=== PATIENT | male | born 1945 | race Caucasian/White ===

== ENCOUNTER 2023-07-06 19:45 | Inpatient (IN) | payer MEDICARE, OTHER ==
--- NOTE | 2023-07-06 20:03 | ED ---
Chest Pain HPI - General Source: patient, family Mode of arrival: ambulatory Limitations: no limitations <Cierra Hilario - Last Filed: 07/06/23 20:02> <Omaira Soriano - Last Filed: 07/14/23 06:43> - General Chief Complaint: Chest Pain Stated Complaint: chest pain Left arm pain jaw pain Time Seen by Provider: 07/06/23 20:10 - History of Present Illness Initial Comments: 77-year-old male presenting with chief complaint of chest pain. This is a centralized chest pain. He also admits to aches in his arms and jaw. Pain started today. (Cierra Hilario) 77-year-old male with past medical history of diabetes, hypertension, hyperlipidemia who presents emergency department who presents emergency department chest pain. States he went grocery shopping this afternoon and when he came home he started having pressure in his chest. He rates it as a 2 out of 10. Denies previous history of heart disease. He denies having any type of cardiac workup. No associated nausea, vomiting or shortness of breath. No fevers, chills or cough. Admits that the pain radiates to his arms and jaw. No other alleviating, precipitating or modifying factors (Omaira Soriano) - Related Data Home Medications Medication Instructions Recorded Confirmed Levothyroxine Sodium [Synthroid] 125 mcg PO DAILY 07/06/23 07/07/23 Empagliflozin [Jardiance] 25 mg PO DAILY@1200 07/07/23 07/07/23 glipiZIDE [Glucotrol] 10 mg PO BID 07/07/23 07/07/23 Previous Rx's Medication Instructions Recorded Aspirin 81 mg PO DAILY #90 tab 07/10/23 Atorvastatin [Lipitor] 80 mg PO HS #90 tab 07/10/23 Clopidogrel [Plavix] 75 mg PO DAILY #30 tablet 07/10/23 Metoprolol Tartrate [Lopressor] 25 mg PO BID #120 tab 07/10/23 Nitroglycerin Sl Tabs [Nitrostat] 0.4 mg SUBLINGUAL Q5M PRN #30 tab 07/10/23 Allergies Allergy/AdvReac Type Severity Reaction Status Date / Time No Known Allergies Allergy Verified 07/06/23 20:27 Review of Systems ROS Other: All systems not noted in ROS Statement are negative. <Cierra Hilario - Last Filed: 07/06/23 20:02> ROS Other: All systems not noted in ROS Statement are negative. <Omaira Soriano - Last Filed: 07/14/23 06:43> ROS Statement: Those systems with pertinent positive or pertinent negative responses have been documented in the HPI. Past Medical History Past Medical History: Diabetes Mellitus, Hyperlipidemia, Hypertension, Thyroid Disorder History of Any Multi-Drug Resistant Organisms: None Reported Past Surgical History: Cholecystectomy Past Psychological History: No Psychological Hx Reported Smoking Status: Former smoker Past Alcohol Use History: None Reported Past Drug Use History: None Reported <Cierra Hilario - Last Filed: 07/06/23 20:02> General Exam Limitations: no limitations <Cierra Hilario - Last Filed: 07/06/23 20:02> General appearance: alert, in no apparent distress Head exam: Present: atraumatic, normocephalic, normal inspection Eye exam: Present: normal appearance, PERRL, EOMI. Absent: scleral icterus, conjunctival injection, periorbital swelling ENT exam: Present: normal exam, mucous membranes moist Neck exam: Present: normal inspection. Absent: tenderness, meningismus, lymphadenopathy Respiratory exam: Present: normal lung sounds bilaterally. Absent: respiratory distress, wheezes, rales, rhonchi, stridor Cardiovascular Exam: Present: regular rate, normal rhythm, normal heart sounds. Absent: systolic murmur, diastolic murmur, rubs, gallop, clicks GI/Abdominal exam: Present: soft, normal bowel sounds. Absent: distended, tenderness, guarding, rebound, rigid Extremities exam: Present: normal inspection, full ROM, normal capillary refill. Absent: tenderness, pedal edema, joint swelling, calf tenderness Back exam: Present: normal inspection Neurological exam: Present: alert, oriented X3, CN II-XII intact Psychiatric exam: Present: normal affect, normal mood Skin exam: Present: warm, dry, intact, normal color. Absent: rash <Omaira Soriano - Last Filed: 07/14/23 06:43> - General Exam Comments Initial Comments: Visual Physical Exam Vital signs reviewed General: Well-appearing, nontoxic, no acute distress. Head: Normocephalic, atraumatic Eyes: PERRLA, EOMI ENT: Airway patent Chest: Nonlabored breathing Skin: No visual rash, normal skin tone Neuro: Alert and oriented 3 Musculoskeletal: No gross abnormalities (Cierra Hilario) Course Vital Signs 07/06/23 07/06/23 07/06/23 19:54 20:20 20:30 Temperature 97.4 F L Pulse Rate 74 82 83 Respiratory 18 18 18 Rate Blood Pressure 178/101 202/97 206/99 O2 Sat by Pulse 99 98 96 Oximetry Chest Pain MDM <Cierra Hilario - Last Filed: 07/06/23 20:02> <Omaira Soriano - Last Filed: 07/14/23 06:43> - MDM I performed the quick note portion of this visit, electronically signed Cierra Hilario PA-C (Cierra Hilario) Was pt. sent in by a medical professional or institution ([facility], [employer]YING [employer]ING SUPERVISOR, urgent care, hospital, or custodial...) When possible be specific @ -No Did you speak to anyone other than the patient for history (EMS, parent, family, police, friend...)? What history was obtained from this source @ -Spoke with the patient's daughter Did you review nursing and triage notes (agree or disagree)? Why? @ -I reviewed and agree with nursing and triage notes Were old charts reviewed (outside hosp., previous admission, EMS record, old EKG, old radiological studies, urgent care reports/EKG's, custodial records)? Report findings @ -No old charts were reviewed Differential Diagnosis (chest pain, altered mental status, abdominal pain women, abdominal pain men, vaginal bleeding, weakness, fever, dyspnea, syncope, headache, dizziness, GI bleed, back pain, seizure, CVA, palpatations, mental health, musculoskeletal)? @ -Differential Chest Pain: Stable Angina, Unstable Angina, STEMI, NSTEMI Aortic Dissection, Pneumothorax, Musculoskeletal, Esophageal Spasm GERD, Cholecystitis, Pancreatitis, Zoster, this is not meant to be an all-inclusive list. EKG interpreted by me (3pts min.). @ -Yes and demonstrates sinus rhythm with a rate of 75. LA interval 223. QRS 111. QTc of 373. ST segment elevation 2, 3, aVF with reciprocal changes in 1, aVL V2V3 X-rays interpreted by me (1pt min.). @ -None done CT interpreted by me (1pt min.). @ -None done U/S interpreted by me (1pt. min.). @ -None done What testing was considered but not performed or refused? (CT, X-rays, U/S, labs)? Why? @ -None What meds were considered but not given or refused? Why? @ -None Did you discuss the management of the patient with other professionals (professionals i.e. Dr., PA, DRYING AND WINDING SUPERVISOR, lab, RT, psych nurse, social service agency director, information systems analyst, teacher, employment officer, spring encaser)? Give summary @ -Spoke with dr. Castro who will take patient to rn labor delivery. Also spoke with dr hernandez for admission Was smoking cessation discussed for >3mins.? @ -No Was critical care preformed (if so, how long)? @ -yes, 35 minutes for stemi activation and management Were there social determinants of health that impacted care today? How? (Homelessness, low income, unemployed, alcoholism, drug addiction, transportation, low edu. Level, literacy, decrease access to med. care, nursing home, rehab)? @ -No Was there de-escalation of care discussed even if they declined (Discuss DNR or withdrawal of care, Hospice)? DNR status @ -No What co-morbidities impacted this encounter? (DM, HTN, Smoking, COPD, CAD, Cancer, CVA, ARF, Chemo, Hep., AIDS, mental health diagnosis, sleep apnea, morbid obesity)? @ -None Was patient admitted / discharged? Hospital course, mention meds given and route, prescriptions, significant lab abnormalities, going to OR and other pertinent info. @ -Upon arrival patient was seen and evaluated in room 3. Thorough history and physical exam was performed. Twelve-lead EKG was obtained which demonstrates ST segment elevation. Aviation Technical Systems Specialist was activated. Spoke with Dr. Castro who will take patient to [facility] Systems Specialist. He was given a beta-pasha, heparin, aspirin and statin. Dr. Castro does present to the ED and sees the patient. Patient will be admitted to Dr. Krause. He was taken to the floor in stable condition Undiagnosed new problem with uncertain prognosis? @ -Yes Drug Therapy requiring intensive monitoring for toxicity (Heparin, Nitro, Insulin, Cardizem)? @ -No Were any procedures done? @ -No Diagnosis/symptom? @ -Acute chest pain, acute STEMI Acute, or Chronic, or Acute on Chronic? @ -Acute Uncomplicated (without systemic symptoms) or Complicated (systemic symptoms)? @ -Complicated Side effects of treatment? @ -No Exacerbation, Progression, or Severe Exacerbation? @ -No Poses a threat to life or bodily function? How? (Chest pain, [place], [place], pneumonia, PE, COPD, DKA, ARF, appy, cholecystitis, CVA, Diverticulitis, Homicidal, Suicidal, threat to staff... and all critical care pts) @ -Yes, patient does present with chest pain and STEMI criteria (Omaira Soriano) Disposition <Cierra Hilario - Last Filed: 07/06/23 20:02> Is patient prescribed a controlled substance at d/c from ED?: No Time of Disposition: 20:22 Decision to Admit Reason: Admit from EC Decision Date: 07/06/23 Decision Time: 20:22 <Omaira Soriano - Last Filed: 07/14/23 06:43> Clinical Impression: Chest pain, ST elevation myocardial infarction (STEMI) Disposition: ADMITTED IP TO THIS HOSP Condition: Stable
[2023-07-06] MEDS ORDERED: NALOXONE 0.4 MG/ML 1 ML VIAL IV PRN (20:25)
[2023-07-06] MEDS: ASPIRIN 81 MG PO STA (20:27)
[2023-07-06] MEDS: METOPROLOL TARTRATE 25 MG TAB PO STA ×2 (20:27→20:42)
[2023-07-06] MEDS: ATORVASTATIN 80 MG TAB PO STA (20:27)
[2023-07-06] MEDS: HEPARIN SODIUM 1,000 UN/ML (10ML VL) IV ONE ×2 (20:28→21:01)
[2023-07-06] MEDS: SODIUM CHLORIDE 0.9% 1,000 ML IV STA (20:29)
[2023-07-06 20:35] LABS: Basophils % (A) 1 %; Eosinophils % (A) 1 %; HCT 52.1 % (39.0-53.0); HGB 16.7 gm/dL (13.0-17.5); Lymphocytes # (A) 1.2 k/uL (1.0-4.8); Lymphocytes % (A) 17 %; MCH 29.9 pg (25.0-35.0); MCHC 32.1 g/dL (31.0-37.0); Mean Platelet Volume 7.2; Monocytes # (A) 0.4 k/uL (0-1.0); Monocytes % (A) 5 %; Neutrophils # (A) 5.4 k/uL (1.3-7.7); Neutrophils % (A) 75 %; Platelet Count 244 k/uL (150-450); RDW 13.5 % (11.5-15.5); WBC 7.2 k/uL (3.8-10.6)
[2023-07-06] MEDS: NITROGLYCERIN OINT 1 INCH/GM PACKET TOPICAL STA (20:41)
[2023-07-06 20:47] LABS: Prothrombin Time 10.8 sec (10.0-12.5)
[2023-07-06 20:49] LABS: ALT 14 U/L (4-49); AST 24 U/L (17-59); African American GFR (CKD) >90 (>60 ml/min/1.73 sqM); Albumin 4.9 g/dL (3.5-5.0); Alkaline Phosphatase 112 U/L (38-126); Anion Gap 12 mmol/L; Blood Urea Nitrogen 16 mg/dL (9-20); Calcium 9.4 mg/dL (8.4-10.2); Carbon Dioxide 25 mmol/L (22-30); Chloride 100 mmol/L (98-107); Glucose 191 mg/dL (74-99); Magnesium 2.1 mg/dL (1.6-2.3); Non-African American GFR(CKD) 83 (>60 ml/min/1.73 sqM); Potassium 4.5 mmol/L (3.5-5.1); Sodium 137 mmol/L (137-145); Total Bilirubin 1.1 mg/dL (0.2-1.3); Total Protein 7.9 g/dL (6.3-8.2)
[2023-07-06] MEDS: IV FLUID CONTINUATION 1,000 ML IV ONE (20:50)
[2023-07-06] MEDS ORDERED: HEPARIN SODIUM 1,000 UN/ML (10ML VL) ONE (20:54)
[2023-07-06] MEDS ORDERED: LIDOCAINE 1% INJ 10MG/ML (20 ML MDV) ONE (20:54)
[2023-07-06] MEDS ORDERED: VERAPAMIL 2.5 MG/ML 2 ML AMP ONE (20:54)
[2023-07-06] MEDS ORDERED: fentaNYL (PF) 50 MCG/ML 2 ML AMP ONE (20:54)
[2023-07-06] MEDS: fentaNYL (PF) 50 MCG/ML 2 ML AMP IVP ONE (20:55)
[2023-07-06] MEDS: LIDOCAINE 1% INJ 10MG/ML (20 ML MDV) SQ ONE (20:56)
[2023-07-06] MEDS: VERAPAMIL SYRINGE (5 MG/10 ML) INTRAARTER ONE (20:57)
--- NOTE | 2023-07-06 20:58 | P.CRDCN ---
History of Present Illness History of present illness: This is Dr. Castro dictating a consult on this patient The patient was interviewed and examined IMPRESSION / ASSESSMENT: Acute inferior posterior [place] with lateral extension Pain started around tween 3 and 4 PM today at rest Hypertension, on losartan Type 2 diabetes on medications Dyslipidemia, on atorvastatin 40 mg p.o. daily at home PLAN: Heparin, atorvastatin, aspirin, metoprolol, Nitropaste The patient was pain-free before he entered the Material Processor Blood pressure still elevated although in the doctor's office his blood pressure was normal recently Proceed with coronary angiography Further management HPI About 3 PM this afternoon the patient started experiencing lower left-sided chest discomfort. He also had discomfort in his left arm and on the right side of the jaw The pain did not go away despite aspirins and he called his daughter who brought him to the hospital His first twelve-lead EKG in the hospital showed ST elevation in the inferior leads with ST depression in leads I and aVL and ST depression in V1 V2 consistent with a inferior posterior [place] His blood pressure was elevated. Initially was given metoprolol 25 mg and then I added a second dose of metoprolol as well as Nitropaste He also received atorvastatin 80 mg p.o. daily, he does take 40 mg p.o. daily on a regular basis He received aspirin and IV heparin bolus Past medical history of diabetes type 2, hypertension on losartan and dyslipidemia, on atorvastatin 40 mg p.o. daily ROS: No fever chills or rigors, no cough, phlegm or expectoration, no nausea, vomiting or diarrhea, no hematuria, dysuria, no musculoskeletal complaints, no strokes or seizures, no skin lesions. EXAMINATION: 178/101 mmHg pulse rate in 70s and 80s afebrile Breath sounds are clear no rhonchi no crackles Heart sounds S1-S2 normal no murmurs or gallop no rub Abdomen soft Extremities warm no edema REVIEW OF LABS, ECG & MEDICAL DATA White count normal hemoglobin 16 platelet count normal Normal electrolytes sodium 137 potassium 4.5 BUN 16 creatinine 0.9 both normal Magnesium normal 2.1 Past Medical History Past Medical History: Diabetes Mellitus, Hyperlipidemia, Hypertension, Thyroid Disorder History of Any Multi-Drug Resistant Organisms: None Reported Past Surgical History: Cholecystectomy Past Psychological History: No Psychological Hx Reported Smoking Status: Former smoker Past Alcohol Use History: None Reported Past Drug Use History: None Reported Medications and Allergies Home Medications Medication Instructions Recorded Confirmed Type Atorvastatin [Lipitor] 40 mg PO DIRECTED 07/06/23 07/06/23 History Levothyroxine Sodium [Synthroid] 125 mcg PO DIRECTED 07/06/23 07/06/23 History RX: Losartan Potassium 50 mg PO DIRECTED 07/06/23 07/06/23 History Unknown Diabetic Medication 1 dose PO DIRECTED 07/06/23 07/06/23 History Unknown Diabetic Medication 1 dose PO DIRECTED 07/06/23 07/06/23 History Allergies Allergy/AdvReac Type Severity Reaction Status Date / Time No Known Allergies Allergy Verified 07/06/23 20:27 Physical Exam Vitals: Vital Signs Temp Pulse Resp BP Pulse Ox 07/06/23 20:30 83 18 206/99 96 07/06/23 20:20 82 18 202/97 98 07/06/23 19:54 97.4 F L 74 18 178/101 99 Intake and Output 07/06/23 07/06/23 07/06/23 06:59 14:59 22:59 Other: Weight 70.307 kg Results 07/06/23 20:11 07/06/23 20:11 Cardiac Enzymes 07/06/23 Range/Units 20:11 AST 24 (17-59) U/L Coagulation 07/06/23 Range/Units 20:11 PT 10.8 (10.0-12.5) sec APTT 26.0 (22.0-30.0) sec CBC 07/06/23 Range/Units 20:11 WBC 7.2 (3.8-10.6) k/uL RBC 5.60 (4.30-5.90) m/uL Hgb 16.7 (13.0-17.5) gm/dL Hct 52.1 (39.0-53.0) % Plt Count 244 (150-450) k/uL Comprehensive Metabolic Panel 07/06/23 Range/Units 20:11 Sodium 137 (137-145) mmol/L Potassium 4.5 (3.5-5.1) mmol/L Chloride 100 (98-107) mmol/L Carbon Dioxide 25 (22-30) mmol/L BUN 16 (9-20) mg/dL Creatinine 0.88 (0.66-1.25) mg/dL Glucose 191 H (74-99) mg/dL Calcium 9.4 (8.4-10.2) mg/dL AST 24 (17-59) U/L ALT 14 (4-49) U/L Alkaline Phosphatase 112 (38-126) U/L Total Protein 7.9 (6.3-8.2) g/dL Albumin 4.9 (3.5-5.0) g/dL Current Medications Generic Name Dose Route Start Last Admin Trade Name Freq PRN Reason Stop Dose Admin Sodium Chloride 1,000 mls @ 999 mls/hr 07/06/23 20:21 07/06/23 20:29 Saline 0.9% IV 07/06/23 21:21 999 mls/hr .Q1H1M STA Administration Naloxone HCl 0.2 mg 07/06/23 20:25 Naloxone 0.4 Mg/Ml 1 Ml Vial IV Q2M PRN Opioid Reversal Intake and Output 07/06/23 07/06/23 07/06/23 06:59 14:59 22:59 Other: Weight 70.307 kg Patient Weight 07/07/23 06:59 Weight 70.307 kg 07/06/23 20:11 07/06/23 20:11
[2023-07-06] MEDS ORDERED: TICAGRELOR 90 MG TAB ONE (21:07)
[2023-07-06] MEDS: TICAGRELOR 90 MG TAB PO ONE (21:08)
[2023-07-06] MEDS: IOPAMIDOL-370 100ML BTL INJ ONE ×2 (21:14→22:00)
--- NOTE | 2023-07-06 21:47 | XR ---
EXAMINATION TYPE: XR chest 1V portable DATE OF EXAM: 07/06/2023 8:33 PM CLINICAL INDICATION:Male, 77 years old with history of Chest Pain; [facility] COMPARISON: Chest radiographs from 01/12/2013 TECHNIQUE: XR chest 1V portable Frontal view of the chest. FINDINGS: Lungs/Pleura: There is no evidence of pleural effusion, focal consolidation, or pneumothorax. Pulmonary vascularity: Unremarkable. Heart/mediastinum: Cardiomediastinal silhouette is prominent in size. Musculoskeletal: Degenerative changes of the shoulder joints. IMPRESSION: No acute cardiopulmonary disease/process.
[2023-07-06] MEDS ORDERED: RX INFO: IV CONTRAST WAS GIVEN 1 EACH MISC MISCELLANE PRN (22:15)
[2023-07-06] MEDS ORDERED: ZOLPIDEM 5 MG TAB PO PRN (22:15)
[2023-07-06] MEDS ORDERED: NITROGLYCERIN SL TABS 0.4 MG TAB SUBLINGUAL PRN (22:15)
[2023-07-06] MEDS ORDERED: MAG HYDROX/AL HYDROX/SIMETH 30 ML CUP PO PRN (22:15)
[2023-07-06] MEDS ORDERED: ATROPINE SULFATE 0.1 MG/ML 10ML SYRINGE IV PRN (22:15)
[2023-07-06] MEDS ORDERED: HEPARIN SODIUM 1,000 UN/ML (10ML VL) IV PRN (22:18)
[2023-07-06 22:22] LABS: Glucose,Whole Blood 185 mg/dL (70-110)
--- NOTE | 2023-07-06 22:29 | P.CARDCATH ---
Date of Procedure: 07/06/23 Description of Procedure: Cardiac Catheterization: The patient is a 77-year-old male with longstanding history of diabetes, hypertension and hyperlipidemia followed at the [facility] who presented with symptoms of chest discomfort and evidence of inferoposterior myocardial infarction. He was evaluated by Dr. Castro. Recommendations were made regarding cardiac catheterization, the risks and the complications were discussed with the patient who is in full understanding and agreement. Procedure Description: Patient was brought to laborer pullet farm in fasting semi-sedated state after receiving Fentanyl and Benadryl achieiving moderate conscious sedated state. Using Xylocaine Anesthesia and modified Seldinger technique, a 6-Cymraes sheath was introduced in the right radial artery . Subsequently, selective coronary angiography was performed using a 5-Cymraes 3.5 bend left Nohemi catheter and 6 Cymraes FR 4 guiding catheter. Multiple views of the coronary artery including hemiaxial views were obtained. The 5 Cymraes pigtail catheter was used to cross the aortic valve and LVEDP was calculated. PCI: Using the FR 4 guiding catheter a 0.014 BMW J-wire with a microcatheter super cross were used to cross the total occlusion of the right PDA. Subsequently a 2.5 x 12 mm trek balloon was advanced and multiple inflations were performed at a maximum of 10 connor. After removing the balloon a 2.25 x 12 mm NC trek balloon was advanced and multiple inflation at a maximum of 14 connor were done in the PDA and distal RCA with persistent significant stenosis. There was inability to use IVUS because of technical problem with the machine. At that time a 2.5 x 12 mm NC trek balloon was advanced and multiple inflations at a maximum of 14 connor were done. Because of the severe calcification attempt to advance shockwave lithotripsy 2.5 x 12 mm balloon were unsuccessful. At that point repeat inflation with a 2.5 x 12 mm trek balloon were done with significant improvement in the lesion. Afterward the wire was removed images were obtained and revealed FREIDA-3 flow with significant improvement in the lesions. Following that, catheter and sheath were removed. Hemostasis was obtained with deployment of vascular band . There was no immediate complication. Patient was returned to room in stable condition. Of note, the patient received a total of 3000 units of intravenous heparin as well as intra-arterial verapamil. He received an oral loading dose of Brilinta, his ACT was followed. He was pain-free and there was significant improvement in his EKG changes. Findings: Fluoroscopy: Severe calcifications of all the coronary arteries was noted. Left main: This is a large size vessel, bifurcating into LAD and left circumflex, the distal left main has 20 to 30% plaque. LAD: This is a large size vessel, reaching to the apex, giving rise to a small diagonal branch. The proximal LAD has severe area of stenosis and a long segment up to 90%. The apical segment is small in caliber and has diffuse intimal disease with a area of stenosis up to 90% Left circumflex: This is a nondominant large size vessel giving rise to 2 obtuse marginal branch. The first 1 has a tubular normal lesion with stenosis up to 90% the distal vessel has no high-grade stenosis the second obtuse marginal branch has no high-grade stenosis but there is an 85% stenosis in the proximal left circumflex. RCA: This is a dominant vessel heavily calcified bifurcating distally to PDA and PLV. The PDA is totally occluded at the ostium. The mid right coronary artery has an area of stenosis of 50% and distally 95%. Left Ventriculogram: Not performed Hemodynamics: There was no gradient across the aortic valve, LVEDP was 16-18 mmHg Conclusion: 1. Severely calcified coronary arteries 2. 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 Successful angioplasty of the right PDA with reduction stenosis, 100% to about 40% with severely calcified vessel and inability to open up the lesion completely with FREIDA-3 flow. Recommendations: I have recommended to obtain a surgical consultation in view of the triple- vessel disease with a heavily calcification in the diabetes. The patient will be started on heparin. He has a FREIDA-3 flow at this point and his pain-free with resolution of his ST segment elevation. An echocardiogram with Doppler will be obtained and depending on his progress further recommendations will be made. The findings and the recommendations were discussed with the patient and the family and they were in full understanding and agreement. Duration of sedation is 60 minutes.
[2023-07-06] MEDS: SODIUM CHLORIDE 0.9% 1,000 ML in EMPTY BAG 1 BAG IV SCH (22:45)
[2023-07-06] MEDS ORDERED: DEXTROSE 50% SYRINGE 50 ML IVP PRN ×2 (23:14)
[2023-07-06 23:49] LABS: Glucose,Whole Blood 206 mg/dL (70-110)
[2023-07-06] MEDS: INSULIN ASPART (NovoLOG) 100 UNIT/ML VIAL SQ SCH (23:52)
[2023-07-06] MEDS: NITROGLYCERIN OINT 1 INCH/GM PACKET TOPICAL SCH (23:54)
[2023-07-07] MEDS: HEPARIN SOD,PORK IN 0.45% NACL 25,000 UNIT in 0.45% NACL 1 250ML.BAG IV SCH (00:14)
[2023-07-07 00:41] LABS: Basophils % (A) 0 %; Eosinophils % (A) 0 %; HGB 14.5 gm/dL (13.0-17.5); Lymphocytes # (A) 1.2 k/uL (1.0-4.8); Lymphocytes % (A) 12 %; MCH 30.1 pg (25.0-35.0); MCV 91.4 fL (80.0-100.0); Mean Platelet Volume 7.9; Monocytes # (A) 0.8 k/uL (0-1.0); Monocytes % (A) 7 %; Neutrophils # (A) 8.2 k/uL (1.3-7.7); Neutrophils % (A) 79 %; Platelet Count 211 k/uL (150-450); RBC 4.81 m/uL (4.30-5.90); RDW 13.6 % (11.5-15.5); WBC 10.3 k/uL (3.8-10.6)
[2023-07-07 00:58] LABS: Prothrombin Time 11.2 sec (10.0-12.5)
--- NOTE | 2023-07-07 04:32 | P.HPIM ---
History of Present Illness H&P Date: 07/06/23 Chief Complaint: Chest pain 77-year-old male with hypertension diabetes mellitus Patient coming in for evaluation of feeling very tired and weak all day he was not feeling well, he ran couple errands and chores during the daytime but then later while resting at home he experienced sudden onset epigastric burning and chest discomfort going up all the way to his neck he called his daughter and she brought him to the hospital he denies any associated dizziness lightheadedness profuse sweating or shortness of breath he denies any cardiac history. Patient denies any tobacco smoking illicit drugs or heavy alcohol he quit smoking over 13 years ago EKG in the ED was suggestive of inferior STEMI for which Video Effects Editor was activated. Patient was found to have severe triple-vessel disease and with background of diabetes cardiology suggested surgical evaluation for bypass surgery patient also had successful PCI of his right PDA review of systems Pertinent positives as noted in HPI. All other systems were reviewed and are negative on exam Constitutional: No acute distress, conversant, pleasant Eyes: Anicteric sclerae, moist conjunctiva, Pupils equal round reactive to light ENMT: NC/AT Oropharynx clear, no erythema, or exudates Neck: Supple, no masses, or JVD No carotid bruits No thyromegaly Lungs: Clear to auscultation Clear to percussion Normal respiratory effort, no accessory muscle use Cardiovascular: Heart regular in rate and rhythm, No murmurs, gallops, or rubs No peripheral edema Abdominal: Soft Nontender, no guarding, rebound or rigidity Abdomen moving with respiration Normoactive bowel sounds Extremities: No digital cyanosis No clubbing Pedal pulses intact and symmetrical Radial pulses intact and symmetrical No calf tenderness Psychiatric: Alert and oriented to person, place and time Appropriate affect fair judgement Neuro Muscles Strength 5/5 in all 4 extremities Sensation to light touch grossly present throughout Cranial nerves II-XII grossly intact Past Medical History Past Medical History: Diabetes Mellitus, Hyperlipidemia, Hypertension, Thyroid Disorder History of Any Multi-Drug Resistant Organisms: None Reported Past Surgical History: Cholecystectomy Past Psychological History: No Psychological Hx Reported Smoking Status: Former smoker Past Alcohol Use History: None Reported Past Drug Use History: None Reported Medications and Allergies Home Medications Medication Instructions Recorded Confirmed Type Atorvastatin [Lipitor] 40 mg PO DIRECTED 07/06/23 07/06/23 History Levothyroxine Sodium [Synthroid] 125 mcg PO DIRECTED 07/06/23 07/06/23 History Losartan Potassium 50 mg PO DIRECTED 07/06/23 07/06/23 History Unknown Diabetic Medication 1 dose PO DIRECTED 07/06/23 07/06/23 History Unknown Diabetic Medication 1 dose PO DIRECTED 07/06/23 07/06/23 History Allergies Allergy/AdvReac Type Severity Reaction Status Date / Time No Known Allergies Allergy Verified 07/06/23 20:27 Physical Exam Vitals: Vital Signs Temp Pulse Resp BP Pulse Ox 07/07/23 04:00 97.9 F 64 13 98/61 95 07/07/23 03:00 56 L 12 86/61 95 07/07/23 02:00 61 20 95/63 97 07/07/23 01:00 61 0 L 122/85 98 07/07/23 00:00 97.9 F 65 12 112/76 97 07/06/23 23:00 85 21 124/77 98 07/06/23 22:29 81 14 124/77 96 07/06/23 22:23 20 07/06/23 20:30 83 18 206/99 96 07/06/23 20:20 82 18 202/97 98 07/06/23 19:54 97.4 F L 74 18 178/101 99 Intake and Output 07/06/23 07/06/23 07/07/23 14:59 22:59 06:59 Intake Total 300 420 Output Total 350 Balance 300 70 Intake: IV 300 420 Sodium Chloride 0.9% 1, 420 000 ml In Empty Bag 1 bag @ 1 ML/KG/HR 70.307 mls/ hr IV .[id number] [facility] Rx#: [id number] Output: Urine 350 Other: Voiding Method Urinal # Voids 1 Weight 70.307 kg Results CBC & Chem 7: 07/07/23 00:24 07/06/23 20:11 Labs: Abnormal Lab Results - Last 24 Hours (Table) 07/06/23 07/06/23 07/06/23 Range/Units 20:11 20:11 22:21 Neutrophils # (1.3-7.7) k/uL APTT (22.0-30.0) sec Glucose 191 H (74-99) mg/dL POC Glucose (mg/dL) 185 H (70-110) mg/dL Troponin I 0.221 H* (0.000-0.034) ng/mL 07/06/23 07/07/23 07/07/23 Range/Units 23:48 00:24 00:24 Neutrophils # 8.2 H (1.3-7.7) k/uL APTT 62.0 H (22.0-30.0) sec Glucose (74-99) mg/dL POC Glucose (mg/dL) 206 H (70-110) mg/dL Troponin I (0.000-0.034) ng/mL Assessment and Plan Assessment: 77-year-old male diabetes mellitus hypertension coming in for evaluation of epigastric burning and discomfort was found to have inferior STEMI I discussed case with ED doctor and accepted the admission for STEMI with anticipated length of stay more than 2 midnights Severe triple-vessel disease STEMI EKG showed inferior ST elevation NC Status post left heart cath and successful PCI of right PDA however due to severe triple-vessel disease cardiology recommending surgical evaluation Continue with heparin drip Continue with aspirin Continue with metoprolol Continue with atorvastatin 80 mg p.o. nightly Nitro Nitropaste as needed for pain Cardiac monitoring ICU admission Tropes were elevated 0.2 Hypertension, elevated uncontrolled Continue with metoprolol 25 mg p.o. twice daily Continue lisinopril 5 mg p.o. twice daily Diabetes mellitus Insulin sliding scale Hypothyroid Continue with levothyroxine Blood work showing white count 7.2 hemoglobin 16.7 unremarkable Sodium 137 potassium 4.5 BUN 16 creatinine 0.88 Full code DVT prophylaxis on heparin drip per [facility] protocol
[2023-07-07 06:21] LABS: Basophils % (A) 0 %; Eosinophils % (A) 0 %; HCT 42.1 % (39.0-53.0); HGB 13.7 gm/dL (13.0-17.5); Lymphocytes # (A) 0.9 k/uL (1.0-4.8); Lymphocytes % (A) 11 %; MCHC 32.5 g/dL (31.0-37.0); MCV 92.4 fL (80.0-100.0); Mean Platelet Volume 7.5; Monocytes # (A) 0.4 k/uL (0-1.0); Monocytes % (A) 5 %; Neutrophils # (A) 6.5 k/uL (1.3-7.7); Neutrophils % (A) 81 %; Platelet Count 201 k/uL (150-450); RBC 4.56 m/uL (4.30-5.90); RDW 13.5 % (11.5-15.5)
[2023-07-07 06:33] LABS: Partial Thromboplastin Time 56.2 sec (22.0-30.0); Prothrombin Time 11.1 sec (10.0-12.5)
[2023-07-07 06:33] LABS: Glucose,Whole Blood 108 mg/dL (70-110)
[2023-07-07 07:06] LABS: ALT 14 U/L (4-49); AST 62 U/L (17-59); African American GFR (CKD) >90 (>60 ml/min/1.73 sqM); Albumin 3.4 g/dL (3.5-5.0); Alkaline Phosphatase 86 U/L (38-126); Anion Gap 7 mmol/L; Blood Urea Nitrogen 16 mg/dL (9-20); Calcium 8.5 mg/dL (8.4-10.2); Carbon Dioxide 20 mmol/L (22-30); Chloride 107 mmol/L (98-107); Glucose 123 mg/dL (74-99); Non-African American GFR(CKD) 88 (>60 ml/min/1.73 sqM); Potassium 3.9 mmol/L (3.5-5.1); Sodium 134 mmol/L (137-145); Total Protein 5.8 g/dL (6.3-8.2)
[2023-07-07] MEDS: LEVOTHYROXINE 125 MCG TAB PO SCH (08:06)
[2023-07-07] MEDS: ASPIRIN 81 MG PO SCH (08:06)
[2023-07-07] MEDS: lisinopriL 5 MG TAB PO SCH (08:07)
[2023-07-07] MEDS: POTASSIUM CHLORIDE ER 20 MEQ TAB.ER PO SCH (08:08)
[2023-07-07] MEDS: METOPROLOL TARTRATE 25 MG TAB PO SCH (09:04)
--- NOTE | 2023-07-07 10:29 | US ---
EXAMINATION TYPE: US carotid duplex BILAT DATE OF EXAM: 07/07/2023 COMPARISON: NONE CLINICAL INDICATION: Male, 77 years old with history of Pre-Op Cardiac Surgery; open heart TECHNIQUE: Carotid duplex ultrasound examination. Indirect Doppler criteria was utilized. FINDINGS: EXAM MEASUREMENTS: RIGHT: Peak Systolic Velocity (PSV) cm/sec ----- Right CCA: 48.1 ----- Right ICA: 50.7 ----- Right ECA: 93.5 ICA/CCA ratio: 1.1 RIGHT: End Diastole cm/sec ----- Right CCA: 0.0 ----- Right ICA: 5.1 ----- Right ECA: 0.0 LEFT: Peak Systolic Velocity (PSV) cm/sec ----- Left CCA: 54.8 ----- Left ICA: 90.5 ----- Left ECA: 119.4 ICA/CCA ratio: 1.6 LEFT: End Diastole cm/sec ----- Left CCA: 0.0 ----- Left ICA: 0.0 ----- Left ECA: 0.0 VERTEBRALS (direction of flow): Right Vertebral: Antegrade Left Vertebral: Antegrade Rhythm: Normal FIRST GRADE TEACHER NOTES: Mild atherosclerotic, no significant stenosis, velocity elevations, or elevated r atios IMPRESSION: 1. Moderate calcified plaque in the carotid bifurcations bilaterally, left greater than right. 2. Based on peak systolic velocities and ratios, no hemodynamically significant stenosis. Criteria for Assigning % of Stenosis / Diameter reduction (Estimation based on the indirect measurements of the internal carotid artery velocities (ICA PSV). 1. Normal (no stenosis)=ICA PSV < 125 cm/s: ratio < 2.0: ICA EDV<40 cm/s. 2. Less than 50% stenosis=ICA PSV < 125 cm/s: ratio < 2.0: ICA EDV<40 cm/s. 3. 50 to 69% stenosis=ICA PSV of 125 to 230 cm/s: ration 2.0 ? 4.0: ICA EDV 40-100 cm/s. 4. Greater than 70% stenosis to near occlusion= ICA PSV > 230 cm/s: ratio > 4.0: ICA EDV > 100 cm/s. 5. Near occlusion= ICA PSV velocities may be low or undetectable: variable ratio and ICA EDV. 6. Total occlusion=unable to detect flow.
--- NOTE | 2023-07-07 10:30 | US ---
EXAMINATION TYPE: Pre-Operative Non-Invasive Evaluation of the hand for Potential Radial Artery Maribell clements, Measurements only DATE OF EXAM: 07/07/2023 10:10 AM CLINICAL INDICATION: Male, 77 years old with history of Pre-Op Cardiac Surgery; left arm measurements only per order SIDE PERFORMED: Left TECHNIQUE: Radial artery is measured utilizing real time linear array sonography. Dominant hand: Right Duplex Findings: Radial Artery: Color flow seen Measurements in mm, transverse view: Left Radial: Proximal: 2x3 mm Mid: 2x2 mm Distal: 2x3 mm IMPRESSION: 1. Left Radial artery measurements listed above. 2. Performing surgeon to determine viability as conduit.
--- NOTE | 2023-07-07 10:31 | US ---
EXAMINATION TYPE: US vein mapping BILAT DATE OF EXAM: 07/07/2023 10:07 AM COMPARISON: NONE CLINICAL INDICATION: Male, 77 years old with history of PreOp Cardiac Surgery; SIDE PERFORMED: Bilateral TECHNIQUE: Lower extremity saphenous vein is examined and measured utilizing real time linear array sonography. Patient History: Smoker: stopped 2012 Heart Disease: blockages on heart cath Previous DVT: n Vascular Surgery: n Discoloration: n Hypertension: y Diabetes: type 2 Paralysis: n Varicosities: y Edema: n DUPLEX FINDINGS: Greater Saphenous: Color flow seen Measurements in mm: Right Greater Saphenous: Groin: 6x6 mm High Thigh: 4x4 mm Mid Thigh: 2x3 mm Above Knee: 1x2 mm Knee: 1x2 mm Below Knee: 2x2 mm Mid Calf: 1x1 mm At Ankle: 1x1 mm Left Greater Saphenous: Groin: 4x5 mm High Thigh: 4x5 mm Mid Thigh: 2x3 mm Above Knee: 3x3 mm Knee: 2x2 mm Below Knee: 2x3 mm Mid Calf: 2x3 mm At Ankle: 2x3 mm GSV exited the fascia and branched frequently bilaterally IMPRESSION: 1. Bilateral GSV measurements listed above. 2. Performing surgeon to determine viability as conduit.
[2023-07-07 11:05] LABS: Chol/HDL Ratio 3.39 Ratio; LDL Cholesterol,Calculated 56.5 mg/dL (0.0-131.0)
[2023-07-07 11:37] LABS: Glucose,Whole Blood 93 mg/dL (70-110)
--- NOTE | 2023-07-07 11:40 | P.PN ---
Subjective Progress Note Date: 07/07/23 The patient is a 77-year-old male who was admitted to the hospital with non-ST elevated myocardial infarction. He underwent coronary angiogram which revealed severe triple-vessel disease. Attempted balloon angioplasty of the PDA branch by Dr. Grissom, which was very difficult and resulted in 40% stenosis. CV surgery has been consulted for multivessel bypass. Patient was interviewed and examined resting comfortably in bed. The patient denies any chest pain or difficulty breathing overnight. He has yet to get up and ambulate and therefore denies any dizziness or lightheadedness. GENERAL: Well-appearing, well-nourished and in no acute distress. NECK: Supple without JVD or thyromegaly. LUNGS: Breath sounds diminished to auscultation bilaterally. Respiration equal and unlabored. No wheezes, rales or rhonchi. HEART: Regular rate and rhythm without murmurs, rubs or gallops. S1 and S2 heard. EXTREMITIES: Normal range of motion, no edema. No clubbing or cyanosis. Peripheral pulses intact and strong. +2 right radial pulse. Mild bruising. No hematoma. TELEMETRY: Sinus bradycardia overnight IMPRESSION: ST elevated myocardial infarction Severe triple-vessel disease Status post balloon angioplasty of the PDA branch History of diabetes History of dyslipidemia History of hypertension PLAN: Switch to carvedilol 1.56 twice daily Continue lisinopril 5 mg daily Continue heparin drip while patient completes CV surgery evaluation Awaiting echocardiogram results Further recommendations based upon clinical course I am dictating on behalf of Dr Jeffry Castro's history/physical and assessme nt/plan. Objective - Vital Signs Vital signs: Vital Signs Temp 97.9 F 07/07/23 04:00 Pulse 56 L 07/07/23 07:00 Resp 24 07/07/23 07:00 BP 126/66 07/07/23 07:00 Pulse Ox 98 07/07/23 07:00 FiO2 Intake & Output 07/06/23 07/07/23 07/07/23 18:59 06:59 18:59 Intake Total 930 Output Total 575 Balance 355 Weight 78.1 kg Intake: IV 930 Sodium Chloride 0.9% 1, 630 000 ml In Empty Bag 1 bag @ 1 ML/KG/HR 70.307 mls/ hr IV .[id number] [facility] Rx#: [id number] Output: Urine 575 Other: Voiding Method Urinal # Voids 1 - Labs CBC & Chem 7: 07/07/23 05:31 07/07/23 05:31 Labs: Abnormal Lab Results - Last 24 Hours (Table) 07/06/23 07/06/23 07/06/23 Range/Units 20:11 20:11 22:21 Neutrophils # (1.3-7.7) k/uL Lymphocytes # (1.0-4.8) k/uL APTT (22.0-30.0) sec Sodium (137-145) mmol/L Carbon Dioxide (22-30) mmol/L Glucose 191 H (74-99) mg/dL POC Glucose (mg/dL) 185 H (70-110) mg/dL AST (17-59) U/L Troponin I 0.221 H* (0.000-0.034) ng/mL Total Protein (6.3-8.2) g/dL Albumin (3.5-5.0) g/dL 07/06/23 07/07/23 07/07/23 Range/Units 23:48 00:24 00:24 Neutrophils # 8.2 H (1.3-7.7) k/uL Lymphocytes # (1.0-4.8) k/uL APTT 62.0 H (22.0-30.0) sec Sodium (137-145) mmol/L Carbon Dioxide (22-30) mmol/L Glucose (74-99) mg/dL POC Glucose (mg/dL) 206 H (70-110) mg/dL AST (17-59) U/L Troponin I (0.000-0.034) ng/mL Total Protein (6.3-8.2) g/dL Albumin (3.5-5.0) g/dL 07/07/23 07/07/23 07/07/23 Range/Units 05:31 05:31 05:31 Neutrophils # (1.3-7.7) k/uL Lymphocytes # 0.9 L (1.0-4.8) k/uL APTT 56.2 H (22.0-30.0) sec Sodium 134 L (137-145) mmol/L Carbon Dioxide 20 L (22-30) mmol/L Glucose 123 H (74-99) mg/dL POC Glucose (mg/dL) (70-110) mg/dL AST 62 H (17-59) U/L Troponin I (0.000-0.034) ng/mL Total Protein 5.8 L (6.3-8.2) g/dL Albumin 3.4 L (3.5-5.0) g/dL
--- NOTE | 2023-07-07 12:27 | P.GSCN ---
History of Present Illness Consult date: 07/07/23 Reason for Consult: Acute inferior posterior myocardial infarction this admission, multivessel coronary artery disease Requesting physician: Lynne Grissom History of present illness: This is a 77-year-old gentleman who follows on an outpatient basis with the [facility] in [place] for his primary care. He has a past medical history significant for hypertension, hyperlipidemia, diabetes mellitus type 2, hypothyroid on S ynthroid as an outpatient, remote history of nicotine dependence quit smoking 13 years ago and osteoarthritis. Yesterday July 06, 2023 around 3 PM the patient reports he was getting some groceries and developed some substernal chest pain which radiated down both of his arms and to his jaw. He also reports he felt like he had no stamina with the chest pain. He denies any recent fever, chills, nausea, vomiting, diarrhea, constipation, hemoptysis, hematemesis, headache, visual disturbances, shortness of breath, lightheadedness, presyncope or syncope. The patient reports that there were no alleviating factors and that he took aspirin at home without relief. Subsequently due to his complaints of chest pain without relief the patient called his daughter who subsequently brought him to the emergency department here at [facility]. Initial laboratory results showed a WBC count of 7.2, hemoglobin 16.7, hematocrit 52.1, platelets 244, PT 10.8, INR 1.0, PTT 26.0, sodium 137, potassium 4.5, chloride 100, BUN 16, creatinine 0.88, glucose 191, calcium 9.4, magnesium 2.1, and an elevated troponin of 0.211. A twelve-lead EKG was completed which showed ST elevation in the inferior leads with ST depression in leads I, aVL, V1 and V2. A chest x-ray was also completed which showed no acute cardiopulmonary disease/process. A consult was placed to Dr. Balderas from cardiology and the patient was recommended to undergo a cardiac catheterization which was performed last evening July 06, [address] Grissom. The cardiac catheterization revealed severe triple-vessel disease with acutely occluded right PDA, severe disease in the LAD and left circumflex, he also underwent successfu angioplasty of the right PDA with reduction stenosis, 100% to about 40% with severely calcified vessel and inability to open the lesion completely with FREIDA-3 flow. Due to the patient's presenting symptoms and findings on the cardiac catheterization a consult was placed to Dr. Augusto Vences from cardiothoracic surgery for further evaluation and treatment recommendations including myocardial vascularization surgery. Review of Systems A review of systems was completed and was negative except as mentioned in the HPI. Past Medical History Past Medical History: Diabetes Mellitus, Hyperlipidemia, Hypertension, Osteoarthritis (OA), Thyroid Disorder History of Any Multi-Drug Resistant Organisms: None Reported Past Surgical History: Cholecystectomy Additional Past Surgical History / Comment(s): Cataract surgery to both eyes. Past Anesthesia/Blood Transfusion Reactions: No Reported Reaction Past Psychological History: No Psychological Hx Reported Smoking Status: Former smoker (Quit smoking 13 years ago) Past Alcohol Use History: None Reported Past Drug Use History: None Reported - Past Family History Mother Family Medical History: Diabetes Mellitus Additional Family Medical History / Comment(s): at age 82 from complications of diabetes Father Additional Family Medical History / Comment(s): History of bleeding ulcers, at age 101 Medications and Allergies Home Medications Medication Instructions Recorded Confirmed Type Atorvastatin [Lipitor] 40 mg PO DAILY 07/06/23 07/07/23 History Levothyroxine Sodium [Synthroid] 125 mcg PO DAILY 07/06/23 07/07/23 History Losartan Potassium 50 mg PO DAILY 07/06/23 07/07/23 History Empagliflozin [Jardiance] 25 mg PO DAILY@1200 07/07/23 07/07/23 History glipiZIDE [Glucotrol] 10 mg PO BID 07/07/23 07/07/23 History Allergies Allergy/AdvReac Type Severity Reaction Status Date / Time No Known Allergies Allergy Verified 07/06/23 20:27 Surgical - Exam Vital Signs Temp Pulse Resp BP Pulse Ox 97.4 F L 74 18 178/101 99 07/06/23 19:54 07/06/23 19:54 07/06/23 19:54 07/06/23 19:54 07/06/23 19:54 - General well developed, well nourished, no distress, no pain - Eyes PERRL, normal ocular movement, no pale, no icteric - ENT normal pinna, normal nares, normal mucosa, no hearing loss, no congestion, poor jail - Neck Neck is supple, no lymphadenopathy. no masses, no bruits, trachea midline, no venous distension - Respiratory Lungs essentially clear throughout. No wheezes, rhonchi or crackles. Respirations are symmetrical and nonlabored. Oxygen saturations 98% on room air. - Cardiovascular Regular rhythm and rate. S1 and S2 present, negative for S3, gallop or murmur. No peripheral edema. - Abdomen Abdomen is soft, nontender nondistended. Active bowel sounds present all 4 abdominal quadrants. No guarding or rigidity. No organomegaly appreciated. - Genitourinary Deferred - Rectum Deferred - Integumentary Skin is warm and dry. No clubbing or cyanosis is present. no rash, no growths, no abnormal pigmentation - Neurologic No focal deficits. normal coordination, normal sensation - Musculoskeletal Moves all 4 extremities with equal strength bilateral. normal gait - Psychiatric oriented to time, oriented to person, oriented to place, speech is normal, memory intact Results - Labs 07/07/23 05:07/07/23 05:31 Abnormal Lab Results - Last 24 Hours (Table) 07/06/23 07/06/23 07/06/23 Range/Units 20:11 20:11 22:21 Neutrophils # (1.3-7.7) k/uL Lymphocytes # (1.0-4.8) k/uL APTT (22.0-30.0) sec Sodium (137-145) mmol/L Carbon Dioxide (22-30) mmol/L Glucose 191 H (74-99) mg/dL POC Glucose (mg/dL) 185 H (70-110) mg/dL AST (17-59) U/L Troponin I 0.221 H* (0.000-0.034) ng/mL Total Protein (6.3-8.2) g/dL Albumin (3.5-5.0) g/dL 07/06/23 07/07/23 07/07/23 Range/Units 23:48 00:24 00:24 Neutrophils # 8.2 H (1.3-7.7) k/uL Lymphocytes # (1.0-4.8) k/uL APTT 62.0 H (22.0-30.0) sec Sodium (137-145) mmol/L Carbon Dioxide (22-30) mmol/L Glucose (74-99) mg/dL POC Glucose (mg/dL) 206 H (70-110) mg/dL AST (17-59) U/L Troponin I (0.000-0.034) ng/mL Total Protein (6.3-8.2) g/dL Albumin (3.5-5.0) g/dL 07/07/23 07/07/23 07/07/23 Range/Units 05:31 05:31 05:31 Neutrophils # (1.3-7.7) k/uL Lymphocytes # 0.9 L (1.0-4.8) k/uL APTT 56.2 H (22.0-30.0) sec Sodium 134 L (137-145) mmol/L Carbon Dioxide 20 L (22-30) mmol/L Glucose 123 H (74-99) mg/dL POC Glucose (mg/dL) (70-110) mg/dL AST 62 H (17-59) U/L Troponin I (0.000-0.034) ng/mL Total Protein 5.8 L (6.3-8.2) g/dL Albumin 3.4 L (3.5-5.0) g/dL Diabetes panel 07/06/23 07/07/23 Range/Units 20:11 05:31 Sodium 137 134 L (137-145) mmol/L Potassium 4.5 3.9 (3.5-5.1) mmol/L Chloride 100 107 (98-107) mmol/L Carbon Dioxide 25 20 L (22-30) mmol/L BUN 16 16 (9-20) mg/dL Creatinine 0.88 0.75 (0.66-1.25) mg/dL Glucose 191 H 123 H (74-99) mg/dL Calcium 9.4 8.5 (8.4-10.2) mg/dL AST 24 62 H (17-59) U/L ALT 14 14 (4-49) U/L Alkaline Phosphatase 112 86 (38-126) U/L Total Protein 7.9 5.8 L (6.3-8.2) g/dL Albumin 4.9 3.4 L (3.5-5.0) g/dL Calcium panel 07/06/23 07/07/23 Range/Units 20:11 05:31 Calcium 9.4 8.5 (8.4-10.2) mg/dL Albumin 4.9 3.4 L (3.5-5.0) g/dL Pituitary panel 07/06/23 07/07/23 Range/Units 20:11 05:31 Sodium 137 134 L (137-145) mmol/L Potassium 4.5 3.9 (3.5-5.1) mmol/L Chloride 100 107 (98-107) mmol/L Carbon Dioxide 25 20 L (22-30) mmol/L BUN 16 16 (9-20) mg/dL Creatinine 0.88 0.75 (0.66-1.25) mg/dL Glucose 191 H 123 H (74-99) mg/dL Calcium 9.4 8.5 (8.4-10.2) mg/dL Adrenal panel 07/06/23 07/07/23 Range/Units 20:11 05:31 Sodium 137 134 L (137-145) mmol/L Potassium 4.5 3.9 (3.5-5.1) mmol/L Chloride 100 107 (98-107) mmol/L Carbon Dioxide 25 20 L (22-30) mmol/L BUN 16 16 (9-20) mg/dL Creatinine 0.88 0.75 (0.66-1.25) mg/dL Glucose 191 H 123 H (74-99) mg/dL Calcium 9.4 8.5 (8.4-10.2) mg/dL Total Bilirubin 1.1 1.0 (0.2-1.3) mg/dL AST 24 62 H (17-59) U/L ALT 14 14 (4-49) U/L Alkaline Phosphatase 112 86 (38-126) U/L Total Protein 7.9 5.8 L (6.3-8.2) g/dL Albumin 4.9 3.4 L (3.5-5.0) g/dL - Imaging Chest x-ray: report reviewed, image reviewed Additional studies: Cardiac catheterization results reviewed. Assessment and Plan Assessment: Multivessel coronary artery disease, status post cardiac catheterization and angioplasty of his PDA coronary artery Acute inferior posterior myocardial infarction this admission, elevated troponin as high as 0.221 Hypertension Hyperlipidemia Diabetes mellitus type 2 Hypothyroid Osteoarthritis Remote history of nicotine dependence, quit smoking 13 years ago Plan: The patient was seen and examined at his bedside in the intensive care unit. His chart and diagnostics reviewed. His case was discussed in detail with Dr. David Maloney from cardiothoracic surgery. Preoperative testing and preoperative teaching has been initiated. The usual course of myocardial vascularization s urgery was discussed with the patient in detail. A clinical frailty score was calculated at 6, which shows fit/mild frailty. A 5 m walk test will be completed with the patient tomorrow morning 07/08/2023. Continue to maximize medical management with aspirin, statin and beta-pasha. Heparin drip m anagement per cardiology recommendations. The patient denies any further complaints of chest pain/pressure. Once the patient's preoperative testing has been completed an STS risk or will be calculated and discussed with the patient. A transthoracic 2D echocardiogram has been ordered with results pending. The patient will be tentatively scheduled for myocardial vascularization surgery with left internal mammary artery, possible left radial artery endoscopic harvest, endoscopic greater saphenous vein harvest, exclusion left atrial appendage and intraoperative transesophageal echocardiogram to be completed by Dr. David Maloney from cardiothoracic surgery on Monday, July 10, 2023. More recommendations to follow based on patient's clinical course and as his preoperative testing has been obtained. Thank you Dr. Grissom and Dr. Castro for this consult and we look forward to working with you in the care of this patient. I have personally seen and examined the patient, performed the documentation and the assessment and plan as written. Number of minutes spent on the visit: 30. ELYSIA Sawyer
--- NOTE | 2023-07-07 12:53 | CA ---
Transthoracic Echo Report Name: Saran Del Angel Age: 77 Gender: M : 1945 Exam Date: 07/07/2023 11:02 Exam Location: [facility] Ht (in): 68 Wt (lb): 155 Ordering Physician: Lynne Grissom MD ([id number]) Attending/Referring Phys: Chemical Processing Technician Franci Armendariz RDCS Procedure CPT: Indications: OH Cardiac Hx: Technical Quality: Fair Contrast 1: Definity Total Dose (mL): 2 Contrast 2: Total Dose (mL): MEASUREMENTS (Male / Female) Normal Values 2D ECHO LV Diastolic Diameter PLAX 4.7 cm 4.2 - 5.9 / 3.9 - 5.3 cm LV Systolic Diameter PLAX 3.2 cm IVS Diastolic Thickness 1.2 cm 0.6 - 1.0 / 0.6 - 0.9 cm LVPW Diastolic Thickness 0.9 cm 0.6 - 1.0 / 0.6 - 0.9 cm LV Relative Wall Thickness 0.4 RV Internal Dim ED PLAX 2.0 cm LA Systolic Diameter LX 3.9 cm 3.0 - 4.0 / 2.7 - 3.8 cm LV Diastolic Volume MOD BP 53.8 cm??? 67 - 155 / 56 - 104 cm??? LV Systolic Volume MOD BP 28.2 cm??? 22 - 58 / 19 - 49 cm??? LV Ejection Fraction MOD BP 47.7 % >= 55 % LV Cardiac Index MOD BP 807.8 cm???/min???m??? LV Diastolic Volume MOD 4C 50.8 cm??? LV Systolic Volume MOD 4C 24.7 cm??? LV Ejection Fraction MOD 4C 51.4 % LV Cardiac Index MOD 4C 822.0 cm???/min???m??? LV Diastolic Length 4C 7.4 cm LV Systolic Length 4C 5.9 cm LV Diastolic Volume MOD 2C 58.1 cm??? LV Systolic Volume MOD 2C 30.5 cm??? LV Ejection Fraction MOD 2C 47.5 % LV Cardiac Index MOD 2C 870.2 cm???/min???m??? LV Diastolic Length 2C 7.4 cm LV Systolic Length 2C 6.3 cm LA Volume 56.1 cm??? 18 - 58 / 22 - 52 cm??? LA Volume Index 30.5 cm???/m??? 16 - 28 cm???/m??? M-MODE Aortic Root Diameter MM 3.1 cm LA Systolic Diameter MM 4.0 cm LA Ao Ratio MM 1.3 AV Cusp Separation MM 1.7 cm DOPPLER AV Peak Velocity 138.7 cm/s AV Peak Gradient 7.7 mmHg AV Mean Velocity 95.1 cm/s AV Mean Gradient 4.0 mmHg AV Velocity Time Integral 35.1 cm LVOT Peak Velocity 129.9 cm/s LVOT Peak Gradient 6.8 mmHg LVOT Velocity Time Integral 36.5 cm MV Area PHT 2.5 cm??? Mitral E Point Velocity 67.6 cm/s Mitral A Point Velocity 109.2 cm/s Mitral E to A Ratio 0.6 MV Deceleration Time 297.8 ms FINDINGS Left Ventricle Left ventricular ejection fraction is estimated at 40-45 %. Mildly increased septal wall thickness. Mildly decreased left ventricular ejection fraction. Hypokinetic inferior wall. Hypokinetic septum. Right Ventricle Normal right ventricular size and function. Right ventricular systolic pressure within normal limits. Right Atrium Normal right atrial size. Left Atrium Mildly increased left atrial volume. Mitral Valve Structurally normal mitral valve. No mitral stenosis. Trace mitral regurgitation. Aortic Valve Trileaflet aortic valve. No aortic valve stenosis or regurgitation. Tricuspid Valve Tricuspid valve not well visualized. Trace tricuspid regurgitation. Pulmonic Valve Structurally normal pulmonic valve. No pulmonic stenosis. No pulmonic regurgitation. Pericardium No pericardial or pleural effusion. Aorta Normal size aortic root and proximal ascending aorta. CONCLUSIONS Reduced LV systolic function ejection fraction 40 to 45% with inferior and septal hypokinesis, severe Previewed by: Dr. Jeffry Castro MD (Electronically Signed) Final Date: 07 July 2023 12:52
[2023-07-07 13:18] LABS: Hepatitis A Antibody IgM Nonreactive (Nonreactive); Hepatitis B Core IgM Nonreactive (Nonreactive); Hepatitis B Surface Antigen Nonreactive (Nonreactive); Hepatitis C IgG Antibody Nonreactive (Nonreactive)
--- NOTE | 2023-07-07 13:50 | CT ---
EXAMINATION TYPE: CT chest wo con DATE OF EXAM: 07/07/2023 COMPARISON: None HISTORY: Preoperative cardiac surgery CT DLP: 331.3 mGycm. Automated Exposure Control for Dose Reduction was Utilized. TECHNIQUE: CT scan of the thorax is performed without IV contrast. FINDINGS: LUNGS: The lungs are grossly clear, there is no concerning parenchymal mass or nodule identified. There are multiple sub-6 mm pulmonary nodules. There is no pleural effusion or pneumothorax seen. The tracheobronchial tree is patent. MEDIASTINUM: Lack of IV contrast is noted to limit evaluation for mediastinal and especially hilar ad enopathy. There are no definitive greater than 1 cm hilar or mediastinal lymph nodes. No cardiomega ly or pericardial effusion is seen. No focal osseous lesions are seen. There is cholecystectomy. There are nonobstructing renal calcifications. IMPRESSION: 1. No acute cardiopulmonary disease. 2. Multiple sub-6 mm pulmonary nodules. Likely benign. Follow-up CT in 6 months to assess stability. 3. Nonobstructing renal calcifications. 4. Cholecystectomy. Follow-up recommendations for incidental pulmonary nodules are per [employer] or [employer].
--- NOTE | 2023-07-07 15:12 | US ---
EXAMINATION TYPE: US arterial LE multi level DATE OF EXAM: 07/07/2023 3:05 PM CLINICAL INDICATION: Male, 77 years old with history of Ankle Brachial Index (ELBA) ; open heart History of: Smoker: stopped 2012 Hypertension: y Diabetic: type 2 Hyperlipidemia: y TIA/CVA: n Previous Vascular Surgery: n CAD: n OR: n Vascular Ulcers: n Claudication: n Gangrene: n Doppler Waveforms: Triphasic waveforms in the posterior tibial arteries. Monophasic waveforms are within the bilateral d orsalis pedis and digital arteries. Right Brachial Pressure: deferred due to IV Left Brachial Pressure: 132 Ankle-Brachial Indices: Right: could not occlude Left: could not occlude (Vessel hardening > 1.4; Normal 0.9 - 1.4, Moderate 0.7 - 0.9, Severe 0.5-0.7) Toe Brachial Indices: Right: could not occlude Left: could not occlude non-compressible vessels bilaterally IMPRESSION: No obvious stenosis. Exam is limited with noncompressible structures.
--- NOTE | 2023-07-07 15:29 | P.PN ---
Subjective Progress Note Date: 07/07/23 (delayed charting seen at 1105) Patient is a 77-year-old male with diabetes mellitus type 2 treated with oral medications, hypertension, dyslipidemia, and hypothyroidism who presented to the ER due to chest pain and was found to have an ER inferior wall ST segment elevated myocardial infarction. Patient was taken to the [facility] by cardiology and found to have severe triple-vessel disease he did undergo successful and the plasty of the right PDA with reduction in stenosis to 40% but inability to completely clear the lesion. He was transferred to the ICU and cardiothoracic surgery was consulted. Plan is for possible cardiac bypass surgery on 07/10/2023. Patient seen and examined at bedside. Feeling much better than yesterday. Denies any overt chest pain, shortness of breath, nausea, vomiting. Feeling slightly overwhelmed with the thoughts of open heart surgery. Vital signs reviewed General: Nontoxic, no distress, appears at stated age Cardiovascular: S1S2 reg, no murmur Lungs: Decreased breath sounds bilateral, no rhonchi, no rales, no accessory muscle use Abdominal: Soft, nontender to palpation, no guarding Ext: No gross muscle atrophy, no edema b/l lower extremities, no contractures Neuro: CN II-XI grossly intact, no focal neuro deficits Psych: Alert, oriented, appropriate affect Assessment/Plan: Severe triple-vessel disease Acute ST segment elevated myocardial infarction status post blood angioplasty to the right PDA wiht reduction for 100% stenosis to 40% stenosis Hypertension Dyslipidemia -Case discussed with Charles Hart NP for cardiothoracic surgery and plan is for open heart surgery on 07/10/2023 pending appropriate workup and treatment -Aspirin 81 mg daily, Lipitor 80 mg daily -Lopressor 25 mg twice daily, lisinopril 5 mg daily -On heparin drip, PTT/PT being monitored -Nitro patch 1 inch every 8 hours Diabetes mellitus type 2 -Sliding scale insulin -Follow blood sugars closely given possibility of open heart surgery -A1c 7.2 Hypothyroidism -TSH 2.3 -Continue with levothyroxine 125 mcg daily Multiple sub-6 mm pulmonary nodules -Follow-up CT in 6 months Imaging: Lower extremity multilevel arterial ultrasound-unable to compress completely CT chest: Multiple 6 mm pulmonary nodules likely benign. Recommending follow-up in 6 months Echocardiogram: Ejection fraction 40 to 45% with inferior and septal hypokinesis -Carotid Doppler: Moderate calcific plaque bilateral carotids left greater than right no hemodynamic significant stenosis -Right and left radial arteries ultrasound: Normal Data Review: Labs reviewed from today include CBC, CMP, and cholesterol level all which are rather unremarkable DVT prophylaxis: On heparin drip Anticipated discharge date: Pending clinical course Anticipated discharge place: Pending clinical course This dictation was prepared using [employer] voice recognition software. Though every attempt is made to correct errors during dictation some may still exist. Objective - Vital Signs Vital signs: Vital Signs Temp 97.8 F 07/07/23 13:08 Pulse 56 L 07/07/23 13:08 Resp 16 07/07/23 13:08 BP 132/70 07/07/23 13:08 Pulse Ox 98 07/07/23 13:08 FiO2 Intake & Output 07/06/23 07/07/23 07/07/23 18:59 06:59 18:59 Intake Total 930 1105 Output Total 575 450 Balance 355 655 Weight 78.1 kg 78.1 kg Intake: IV 930 985 Invasive Line 2 5 Sodium Chloride 0.9% 1, 630 980 000 ml In Empty Bag 1 bag @ 1 ML/KG/HR 70.307 mls/ hr IV .[id number] [facility] Rx#: [id number] Oral 120 Output: Urine 575 450 Other: Voiding Method Urinal Urinal # Voids 1 1 - Labs CBC & Chem 7: 07/07/23 05:31 07/07/23 05:31 Labs: Abnormal Lab Results - Last 24 Hours (Table) 07/06/23 07/06/23 07/06/23 Range/Units 20:11 20:11 22:21 Neutrophils # (1.3-7.7) k/uL Lymphocytes # (1.0-4.8) k/uL APTT (22.0-30.0) sec Sodium (137-145) mmol/L Carbon Dioxide (22-30) mmol/L Glucose 191 H (74-99) mg/dL POC Glucose (mg/dL) 185 H (70-110) mg/dL Hemoglobin A1c (<=6.0) % AST (17-59) U/L Troponin I 0.221 H* (0.000-0.034) ng/mL Total Protein (6.3-8.2) g/dL Albumin (3.5-5.0) g/dL HDL Cholesterol (40.00-60.00) mg/dL 07/06/23 07/07/23 07/07/23 Range/Units 23:48 00:24 00:24 Neutrophils # (1.3-7.7) k/uL Lymphocytes # (1.0-4.8) k/uL APTT (22.0-30.0) sec Sodium (137-145) mmol/L Carbon Dioxide (22-30) mmol/L Glucose (74-99) mg/dL POC Glucose (mg/dL) 206 H (70-110) mg/dL Hemoglobin A1c 7.2 H (<=6.0) % AST (17-59) U/L Troponin I (0.000-0.034) ng/mL Total Protein (6.3-8.2) g/dL Albumin (3.5-5.0) g/dL HDL Cholesterol 33.90 L (40.00-60.00) mg/dL 07/07/23 07/07/23 07/07/23 Range/Units 00: 00:24 05:31 Neutrophils # 8.2 H (1.3-7.7) k/uL Lymphocytes # (1.0-4.8) k/uL APTT 62.0 H (22.0-30.0) sec Sodium 134 L (137-145) mmol/L Carbon Dioxide 20 L (22-30) mmol/L Glucose 123 H (74-99) mg/dL POC Glucose (mg/dL) (70-110) mg/dL Hemoglobin A1c (<=6.0) % AST 62 H (17-59) U/L Troponin I (0.000-0.034) ng/mL Total Protein 5.8 L (6.3-8.2) g/dL Albumin 3.4 L (3.5-5.0) g/dL HDL Cholesterol (40.00-60.00) mg/dL 07/07/23 07/07/23 Range/Units 05:31 05:31 Neutrophils # (1.3-7.7) k/uL Lymphocytes # 0.9 L (1.0-4.8) k/uL APTT 56.2 H (22.0-30.0) sec Sodium (137-145) mmol/L Carbon Dioxide (22-30) mmol/L Glucose (74-99) mg/dL POC Glucose (mg/dL) (70-110) mg/dL Hemoglobin A1c (<=6.0) % AST (17-59) U/L Troponin I (0.000-0.034) ng/mL Total Protein (6.3-8.2) g/dL Albumin (3.5-5.0) g/dL HDL Cholesterol (40.00-60.00) mg/dL
[2023-07-07] MEDS: MD COMMUNICATION TO PHARMACY 1 EACH MISC PO ONE ×4 (16:10→16:11)
[2023-07-07 16:28] LABS: Glucose,Whole Blood 92 mg/dL (70-110)
[2023-07-07 20:07] LABS: Glucose,Whole Blood 132 mg/dL (70-110)
[2023-07-07] MEDS: MUPIROCIN 2% OINT 22 GM TUBE NASAL SCH (20:45)
[2023-07-07] MEDS: ATORVASTATIN 80 MG TAB PO SCH (20:45)
[2023-07-08 04:21] LABS: Amorphous Sediment,Urine Few /hpf; Appearance,Urine Cloudy (Clear); Bilirubin,Urine Negative (Negative); Blood,Urine Negative (Negative); Color,Urine Colorless; Glucose,Urine (UA) 4+ (Negative); Ketones,Urine Negative (Negative); Leukocyte Esterase,Urine Large (Negative); Nitrite,Urine Positive (Negative); PH, Urine 5.5 (5.0-8.0); Protein,Urine Negative (Negative); Specific Gravity,Urine 1.018 (1.001-1.035); Squamous Epithelial Cell,Urine <1 /hpf (0-4); Urobilinogen,Urine <2.0 mg/dL (<2.0); WBC,Urine 178 /hpf (0-5)
[2023-07-08 06:37] LABS: Glucose,Whole Blood 104 mg/dL (70-110)
--- NOTE | 2023-07-08 10:36 | P.PN ---
Subjective Progress Note Date: 07/08/23 Principal diagnosis: Acute inferior posterior myocardial infarction this admission, multivessel coronary artery disease. Past medical history significant for hypertension, hyperlipidemia, diabetes mellitus type 2, hypothyroid on Synthroid as an outpatient, remote history of nicotine dependence quit smoking 13 years ago and osteoarthritis. The patient was seen and examined in follow-up today July 08, 2023 at his bedside on the third floor cardiac stepdown unit. He is currently sitting up in his bed, is awake, alert, oriented x 3 and is in no acute apparent distress. He denies any further complaints of chest pain/pressure and denies any complaints of shortness of breath at this time. His preoperative testing remains in progress with his FEV1 pending. Transthoracic 2D echocardiogram was completed yesterday which showed a left ventricular ejection fraction estimated at 40 to 45%, mildly increased septal wall thickness, mildly decreased left ventricular ejection fraction, hypokinetic inferior wall, hypokinetic septum, trace mitral valve regurgitation, and trace tricuspid valve regurgitation. He is tentatively scheduled for myocardial vascularization surgery on July 10, 2023 to be performed by Dr. Maloney with left internal mammary artery, possible endoscopic left radial artery harvest, endoscopic left vein harvest, exclusion left atrial appendage and intraoperative transesophageal echocardiogram. Once his preoperative testing has been obtained and STS risk or will be calculated and discussed with the patient. Oxygen saturations are 97% on room air and his remote telemetry is showing sinus bradycardia with a first-degree AV block heart rate 53 bpm. H eparin drip remains infusing per protocol. Laboratory results reviewed. Objective - Vital Signs Vital signs: Vital Signs Temp 97.5 F L 07/08/23 08:00 Pulse 65 07/08/23 08:00 Resp 18 07/08/23 08:00 BP 120/70 07/08/23 08:00 Pulse Ox 97 07/08/23 08:00 FiO2 Intake & Output 07/07/23 07/08/23 07/08/23 18:59 06:59 18:59 Intake Total 1105 228.08 850 Output Total 450 175 325 Balance 655 53.08 525 Weight 78.1 kg 73.7 kg Intake: IV 985 850 Invasive Line 2 5 10 Sodium Chloride 0.9% 1, 980 840 000 ml In Empty Bag 1 bag @ 1 ML/KG/HR 70.307 mls/ hr IV .[id number] [facility] Rx#: [id number] Intake, IV Titration 228.08 Amount Heparin Sod,Pork in 0.45% 228.08 NaCl 25,000 unit In 0.45 % NaCl 1 250ml.bag @ 12 UNITS/KG/HR 8.437 mls/hr IV .Q24H [facility] Rx#: [id number] Oral 120 Output: Urine 450 175 325 Other: Voiding Method Urinal Urinal Urinal # Voids 1 1 - Exam CONSTITUTIONAL: appears comfortable, cooperative, no apparent acute distress. HEENT: Neck is supple, no JVD, no lymphadenopathy. RESPIRATORY: Lungs sounds essentially clear throughouts. Respirations are symmetrical and nonlabored. Currently on room air with oxygen saturations 97%. Strong cough. CARDIOVASCULAR: Regular rhythm and bradycardic rate. S1 and S2 present, negative for S3, gallop or murmur. GASTROINTESTINAL: Abdomen soft, nontender, nondistended. Active bowel sounds present 4 quadrants. Tolerating diet. Passing flatus. No guarding or rigi dity. GENITOURINARY: Continues to void. INTEGUMENTARY: Skin is warm and dry with no evidence of clubbing or cyanosis. NEUROLOGIC: Cranial nerves II through XII intact. No focal deficits. MUSKULOSKELETAL: Able to move all extremities, strength equal bilaterally. PSYCHIATRIC: Alert and oriented to person place and time, appropriate affect, intact judgment and insight. - Allied health notes Allied health notes reviewed: nursing - Labs CBC & Chem 7: 07/07/23 05:31 07/07/23 05:31 Labs: Abnormal Lab Results - Last 24 Hours (Table) 07/07/23 07/07/23 07/08/23 Range/Units 00:24 20:05 03:23 APTT (22.0-30.0) sec POC Glucose (mg/dL) 132 H (70-110) mg/dL HDL Cholesterol 33.90 L (40.00-60.00) mg/dL Urine Glucose (UA) 4+ H (Negative) Ur Leukocyte Esterase Large H (Negative) Urine WBC 178 H (0-5) /hpf Urine WBC Clumps Moderate H (None) /hpf Amorphous Sediment Few H (None) /hpf 07/08/23 Range/Units 04:48 APTT 53.0 H (22.0-30.0) sec POC Glucose (mg/dL) (70-110) mg/dL HDL Cholesterol (40.00-60.00) mg/dL Urine Glucose (UA) (Negative) Ur Leukocyte Esterase (Negative) Urine WBC (0-5) /hpf Urine WBC Clumps (None) /hpf Amorphous Sediment (None) /hpf - Imaging and Cardiology CT scan - chest: report reviewed, image reviewed Assessment and Plan Assessment: Multivessel coronary artery disease, status post cardiac catheterization and angioplasty of his PDA coronary artery Acute inferior posterior myocardial infarction this admission, elevated troponin as high as 0.221 Hypertension Hyperlipidemia Diabetes mellitus type 2 Hypothyroid Osteoarthritis Remote history of nicotine dependence, quit smoking 13 years ago Plan: The patient is tentatively scheduled for myocardial vascularization surgery on July 10, 2023 to be performed by Dr. Maloney with left internal mammary artery, possible endoscopic left radial artery harvest, endoscopic left vein harvest, exclusion left atrial appendage and intraoperative transesophageal echocardiogram. FEV1 remains pending. Urinalysis is showing large leukocyte Estrace, urine WBC 178, urine culture pending continue to follow results. Once his preoperative testing has been obtained and reviewed and STS risk or will be calculated and discussed with the patient. A clinical frailty score was calculated at 6, which shows fit/mild frailty. A 5 m walk test was completed with the patient, time 1: 4.45 seconds, Time 2: 4.93 seconds, Time 3: 4.23 seconds. Preoperative testing and preoperative teaching is in progress. Encourage use of incentive spirometry 10 times every hour while awake. Heparin drip management per cardiology recommendations. N.p.o. after midnight on July 10, 2023 in preparation for myocardial vasculariza tion surgery. More recommendations to follow based on patient's clinical course. Time with Patient: Greater than 30
[2023-07-08 11:37] LABS: Glucose,Whole Blood 102 mg/dL (70-110)
[2023-07-08 12:06] LABS: Appearance,Urine Clear (Clear); Bilirubin,Urine Negative (Negative); Blood,Urine Negative (Negative); Color,Urine Light Yellow; Glucose,Urine (UA) 4+ (Negative); Ketones,Urine Trace (Negative); Leukocyte Esterase,Urine Small (Negative); Nitrite,Urine Positive (Negative); Protein,Urine Trace (Negative); RBC,Urine 1 /hpf (0-5); Specific Gravity,Urine 1.017 (1.001-1.035); Urobilinogen,Urine <2.0 mg/dL (<2.0); WBC,Urine 11 /hpf (0-5)
--- NOTE | 2023-07-08 13:04 | P.PN ---
Subjective Progress Note Date: 07/08/23 The patient is a 77-year-old male who was admitted to the hospital with non-ST elevated myocardial infarction. He underwent coronary angiogram which revealed severe triple-vessel disease. Attempted balloon angioplasty of the PDA branch by Dr. Grissom, which was very difficult and resulted in 40% stenosis. CV surgery has been consulted for multivessel bypass. He has completed his walk test carotid Dopple he has completed his walk test and carotid Doppler. Extensive conversation with CV PA, the patient and his family. All questions have been answered. The patient is resting comfortably up in the recliner chair. The patient denies any chest pain or difficulty breathing overnight. No dizziness or lightheadedness when standing. GENERAL: Well-appearing, well-nourished and in no acute distress. NECK: Supple without JVD or thyromegaly. LUNGS: Breath sounds diminished to auscultation bilaterally. Respiration equal and unlabored. No wheezes, rales or rhonchi. HEART: Regular rate and rhythm without murmurs, rubs or gallops. S1 and S2 heard. EXTREMITIES: Normal range of motion, no edema. No clubbing or cyanosis. Peripheral pulses intact and strong. TELEMETRY: Sinus bradycardia overnight IMPRESSION: ST elevated myocardial infarction Severe triple-vessel disease Status post balloon angioplasty of the PDA branch History of diabetes History of dyslipidemia History of hypertension Urinary tract infection Pulmonary nodules, outpatient workup post surgery PLAN: Continue current medication regimen Primary team to manage urinary tract infection CV surgery to continue CABG workup I am dictating on behalf of Dr Jeffry Castro's history/physical and assessment/plan. Objective - Vital Signs Vital signs: Vital Signs Temp 97.5 F L 07/08/23 08:00 Pulse 65 07/08/23 08:00 Resp 18 07/08/23 08:00 BP 120/70 07/08/23 08:00 Pulse Ox 97 07/08/23 08:00 FiO2 Intake & Output 07/07/23 07/08/23 07/08/23 18:59 06:59 18:59 Intake Total 1105 228.08 970 Output Total 450 175 325 Balance 655 53.08 645 Weight 78.1 kg 73.7 kg Intake: IV 985 850 Invasive Line 2 5 10 Sodium Chloride 0.9% 1, 980 840 000 ml In Empty Bag 1 bag @ 1 ML/KG/HR 70.307 mls/ hr IV .[id number] [facility] Rx#: [id number] Intake, IV Titration 228.08 Amount Heparin Sod,Pork in 0.45% 228.08 NaCl 25,000 unit In 0.45 % NaCl 1 250ml.bag @ 12 UNITS/KG/HR 8.437 mls/hr IV .Q24H [facility] Rx#: [id number] Oral 120 120 Output: Urine 450 175 325 Other: Voiding Method Urinal Urinal Urinal # Voids 1 1 - Labs CBC & Chem 7: 07/07/23 05:31 07/07/23 05:31 Labs: Abnormal Lab Results - Last 24 Hours (Table) 07/07/23 07/07/23 07/08/23 Range/Units 00:24 20:05 03:23 APTT (22.0-30.0) sec POC Glucose (mg/dL) 132 H (70-110) mg/dL HDL Cholesterol 33.90 L (40.00-60.00) mg/dL Urine Glucose (UA) 4+ H (Negative) Ur Leukocyte Esterase Large H (Negative) Urine WBC 178 H (0-5) /hpf Urine WBC Clumps Moderate H (None) /hpf Amorphous Sediment Few H (None) /hpf 07/08/23 Range/Units 04:48 APTT 53.0 H (22.0-30.0) sec POC Glucose (mg/dL) (70-110) mg/dL HDL Cholesterol (40.00-60.00) mg/dL Urine Glucose (UA) (Negative) Ur Leukocyte Esterase (Negative) Urine WBC (0-5) /hpf Urine WBC Clumps (None) /hpf Amorphous Sediment (None) /hpf
--- NOTE | 2023-07-08 15:45 | P.CNPUL ---
History of Present Illness Consult date: 07/08/23 Requesting physician: David Maloney Reason for consult: other (Ventilator/critical care management) Chief complaint: Chest pain History of present illness: This is a pleasant 77-year-old male patient with a known history of diabetes mellitus type 2, hypothyroidism, hypertension, hyperlipidemia, former smoker who quit 13 years ago. He presented here to the emergency room on July 06, 2023 with complaints of chest pain radiating to his arms and jaw. He was found to have an acute myocardial infarction and was taken directly to the [facility] was found to have severe calcified coronary arteries, severe triple-vessel disease with acutely acute PDA and severe disease in the LAD and left circumflex. He did undergo angioplasty of the PDA. He was recommended coronary artery bypass surgery. Echocardiogram revealed impaired left ventricular systolic function with ejection fraction of [address] scan of the chest revealed no acute cardiopulmonary disease. There was some multiple sub-6 mm pulmonary nodules likely benign. His pulmonary function testing was consistent with restrictive lung disease however it appeared to be a inadequate test with decreased effort. His FEV1 value was 1.17 which is only 43% of predicted. He is seen today in consultation on the selective care unit. He is awake and alert in no acute distress. He denies any pulmonary symptoms. No shortness of breath, cough or congestion. He is not on any inhalers in the outpatient setting. He is able to do most day-to-day activities without significant shortness of breath. He has been educated regarding the use of the incentive spirometer. He is currently maintaining good O2 saturations in the 90s on room air. He has been afebrile. Hemodynamically stable. Review of Systems REVIEW OF SYSTEMS: CONSTITUTIONAL: Denies any recent significant weight loss or weight gain. EYES: Denies change in vision. EARS, NOSE, MOUTH, THROAT: Denies headaches, denies sore throat. CARDIOVASCULAR: Positive for chest pain dating to his arms and jaw, no palpitations or syncopal episodes. RESPIRATORY: Denies shortness of breath, cough, congestion or hemoptysis. GASTROINTESTINAL: Denies change in appetite, denies abdominal pain GENITOURINARY: Denies hematuria, denies infections. MUSKULOSKELETAL: Denies pain, denies swelling. INTEGUMENTARY: Denies rash, denies eczema. NEUROLOGICAL: Denies recent memory loss, no recent seizure activity. PSYCHIATRIC: Denies anxiety, denies depression. HEMATOLOGIC/LYMPHATIC: Denies anemia, denies enlarged lymph nodes. Past Medical History Past Medical History: Diabetes Mellitus, Hyperlipidemia, Hypertension, Osteo arthritis (OA), Thyroid Disorder History of Any Multi-Drug Resistant Organisms: None Reported Past Surgical History: Cholecystectomy Additional Past Surgical History / Comment(s): Cataract surgery to both eyes. Past Anesthesia/Blood Transfusion Reactions: No Reported Reaction Past Psychological History: No Psychological Hx Reported Smoking Status: Former smoker (Quit smoking 13 years ago) Past Alcohol Use History: None Reported Past Drug Use History: None Reported - Past Family History Mother Family Medical History: Diabetes Mellitus Additional Family Medical History / Comment(s): at age 82 from comp lications of diabetes Father Additional Family Medical History / Comment(s): History of bleeding ulcers, at age 101 Medications and Allergies Home Medications Medication Instructions Recorded Confirmed Type Atorvastatin [Lipitor] 40 mg PO DAILY 07/06/23 07/07/23 History Levothyroxine Sodium [Synthroid] 125 mcg PO DAILY 07/06/23 07/07/23 History Losartan Potassium 50 mg PO DAILY 07/06/23 07/07/23 History Empagliflozin [Jardiance] 25 mg PO DAILY@1200 07/07/23 07/07/23 History glipiZIDE [Glucotrol] 10 mg PO BID 07/07/23 07/07/23 History Allergies Allergy/AdvReac Type Severity Reaction Status Date / Time No Known Allergies Allergy Verified 07/06/23 20:27 Physical Exam Vitals: Vital Signs Temp Pulse Pulse Pulse Resp BP Pulse Ox 07/08/23 11:16 98.1 F 69 16 161/69 98 07/08/23 08:00 97.5 F L 65 18 120/70 97 07/08/23 03:50 98.0 F 54 L 16 108/62 98 07/07/23 23:42 97.9 F 62 18 110/55 96 07/07/23 19:49 97.9 F 57 L 18 122/63 97 07/07/23 15:57 97.6 F 56 L 14 132/70 98 Intake and Output 07/08/23 07/08/23 07/08/23 06:59 14:59 22:59 Intake Total 228.08 480 Output Total 175 575 Balance 53.08 -95 Intake: IV 360 Invasive Line 2 10 Sodium Chloride 0.9% 1, 350 000 ml In Empty Bag 1 bag @ 1 ML/KG/HR 70.307 mls/ hr IV .[id number] [facility] Rx#: [id number] Intake, IV Titration 228.08 Amount Heparin Sod,Pork in 0.45% 228.08 NaCl 25,000 unit In 0.45 % NaCl 1 250ml.bag @ 12 UNITS/KG/HR 8.437 mls/hr IV .Q24H [facility] Rx#: [id number] Oral 120 Output: Urine 175 575 Other: Voiding Method Urinal Urinal Urinal # Voids 1 Weight 73.7 kg GENERAL EXAM: Alert, very pleasant 77-year-old male, on room air, comfortable in no apparent distress. HEAD: Normocephalic. EYES: Normal reaction of pupils, equal size. NOSE: Clear with pink turbinates. THROAT: No erythema or exudates. NECK: No masses, no JVD. CHEST: No chest wall deformity. LUNGS: Equal air entry with no crackles, wheeze, rhonchi or dullness. CVS: S1 and S2 normal with no audible murmur, regular rhythm. ABDOMEN: No hepatosplenomegaly, normal bowel sounds, no guarding or rigidity. SPINE: No scoliosis or deformity SKIN: No rashes CENTRAL NERVOUS SYSTEM: No focal deficits, tone is normal in all 4 extremities. EXTREMITIES: There is no peripheral edema. No clubbing, no cyanosis. Peripheral pulses are intact. Results - Laboratory Findings CBC and BMP: 07/07/23 05:31 07/07/23 05:31 PT/INR, D-dimer PT 11.1 sec (10.0-12.5) 07/07/23 05:31 INR 1.0 (<1.2) 07/07/23 05:31 Abnormal lab findings: Abnormal Labs 07/06/23 07/06/23 07/06/23 20:11 20:11 22:21 Neutrophils # Lymphocytes # APTT Sodium Carbon Dioxide Glucose 191 H POC Glucose (mg/dL) 185 H Hemoglobin A1c AST Troponin I 0.221 H* Total Protein Albumin HDL Cholesterol Urine Protein Urine Glucose (UA) Urine Ketones Ur Leukocyte Esterase Urine WBC Urine WBC Clumps Amorphous Sediment 07/06/23 07/07/23 07/07/23 23:48 00:24 00:24 Neutrophils # Lymphocytes # APTT Sodium Carbon Dioxide Glucose POC Glucose (mg/dL) 206 H Hemoglobin A1c 7.2 H AST Troponin I Total Protein Albumin HDL Cholesterol 33.90 L Urine Protein Urine Glucose (UA) Urine Ketones Ur Leukocyte Esterase Urine WBC Urine WBC Clumps Amorphous Sediment 07/07/23 07/07/23 07/07/23 00:24 00:24 05:31 Neutrophils # 8.2 H Lymphocytes # APTT 62.0 H Sodium 134 L Carbon Dioxide 20 L Glucose 123 H POC Glucose (mg/dL) Hemoglobin A1c AST 62 H Troponin I Total Protein 5.8 L Albumin 3.4 L HDL Cholesterol Urine Protein Urine Glucose (UA) Urine Ketones Ur Leukocyte Esterase Urine WBC Urine WBC Clumps Amorphous Sediment 07/07/23 07/07/23 07/07/23 05:31 05:31 20:05 Neutrophils # Lymphocytes # 0.9 L APTT 56.2 H Sodium Carbon Dioxide Glucose POC Glucose (mg/dL) 132 H Hemoglobin A1c AST Troponin I Total Protein Albumin HDL Cholesterol Urine Protein Urine Glucose (UA) Urine Ketones Ur Leukocyte Esterase Urine WBC Urine WBC Clumps Amorphous Sediment 07/08/23 07/08/23 07/08/23 03:23 04:48 11:24 Neutrophils # Lymphocytes # APTT 53.0 H Sodium Carbon Dioxide Glucose POC Glucose (mg/dL) Hemoglobin A1c AST Troponin I Total Protein Albumin HDL Cholesterol Urine Protein Trace H Urine Glucose (UA) 4+ H 4+ H Urine Ketones Trace H Ur Leukocyte Esterase Large H Small H Urine WBC 178 H 11 H Urine WBC Clumps Moderate H Amorphous Sediment Few H - Diagnostic Findings Chest x-ray: image reviewed (No acute pulmonary process) CT scan - chest: image reviewed Assessment and Plan Assessment: Acute inferior posterior myocardial infarction Multivessel coronary artery disease s/p angioplasty of the PDA, plans for coronary revascularization on July 10, 2023 Remote history of smoking quit approximately 13 years ago not on inhalers in the outpatient setting Hypertension Hyperlipidemia Diabetes mellitus, type II Hypothyroidism Plan: The patient was seen and evaluated CT scan of the chest, chest x-ray, labs and medications reviewed Pulmonary function testing appeared inadequate and underestimated Will try to repeat it prior to his surgery The patient has no pulmonary complaints and stable and on room air He has been educated regarding the use of the incentive spirometer Remains on a heparin drip We will continue to follow and make further recommendations based on his clinical status I have personally seen and examined the patient, performed the documentation and the assessment and plan as written. Number of minutes spent on the visit: 20.
--- NOTE | 2023-07-08 15:51 | P.PN ---
Subjective Progress Note Date: 07/08/23 (delayed charting seen at 1100) Patient is a 77-year-old male with diabetes mellitus type 2 treated with oral medications, hypertension, dyslipidemia, and hypothyroidism who presented to the ER due to chest pain and was found to have an ER inferior wall ST segment elevated myocardial infarction. Patient was taken to the [facility] by cardiology and found to have severe triple-vessel disease he did undergo successful and the plasty of the right PDA with reduction in stenosis to 40% but inability to completely clear the lesion. He was transferred to the ICU and cardiothoracic surgery was consulted. Plan is for possible cardiac bypass surgery on 07/10/2023. Patient seen and examined at bedside with family present. He is doing well. No chest pain. All questions answered. Patient denies any dysuria or urinary frequency. Had abnormal urinary retention this morning but has since resolved. Vital signs reviewed General: Nontoxic, no distress, appears at stated age Cardiovascular: S1S2 reg, no murmur Lungs: Decreased breath sounds bilateral, no rhonchi, no rales, no accessory muscle use Abdominal: Soft, nontender to palpation, no guarding Ext: No gross muscle atrophy, no edema b/l lower extremities, no contractures Neuro: CN II-XI grossly intact, no focal neuro deficits Psych: Alert, oriented, appropriate affect Assessment/Plan: Severe triple-vessel disease Acute ST segment elevated myocardial infarction status post blood angioplasty to the right PDA wiht reduction for 100% stenosis to 40% stenosis Hypertension Dyslipidemia -Case discussed with CT surgery nurse practitioner. Plan is for surgery on 07/10/2023. -Pulmonary note reviewed: Pulmonary function testing adequate -Cardiology note reviewed: Continue current medication occasions -Aspirin 81 mg daily, Lipitor 80 mg daily -Lopressor 25 mg twice daily -On heparin drip, PTT/PT being monitored -Nitro patch 1 inch every 8 hours Diabetes mellitus type 2 -Hold Glucotrol, Jardiance anticipate resuming jardaince post-op -Sliding scale insulin -Follow blood sugars closely given possibility of open heart surgery -A1c 7.2 Normal urinalysis -[place] that this is likely secondary to patient's urinary retention which has since resolved. Repeat urinalysis ordered and white blood cells count is down to 11 not consistent with urinary tract infection. -Patient also has no signs or symptoms of urinary tract infection. Hypothyroidism -TSH 2.3 -Continue with levothyroxine 125 mcg daily Multiple sub-6 mm pulmonary nodules -Follow-up CT in 6 months Hospital Course Imaging: None new 07/08/23 Lower extremity multilevel arterial ultrasound-unable to compress completely CT chest: Multiple 6 mm pulmonary nodules likely benign. Recommending follow-up in 6 months Echocardiogram: Ejection fraction 40 to 45% with inferior and septal hypokinesis -Carotid Doppler: Moderate calcific plaque bilateral carotids left greater than right no hemodynamic significant stenosis -Right and left radial arteries ultrasound: Normal Data Review: Labs reviewed from today include CBC, CMP, and cholesterol level all which are rather unremarkable DVT prophylaxis: On heparin drip Anticipated discharge date: Pending clinical course Anticipated discharge place: Pending clinical course This dictation was prepared using [employer] voice recognition software. Though every attempt is made to correct errors during dictation some may still exist. Objective - Vital Signs Vital signs: Vital Signs Temp 98.1 F 07/08/23 11:16 Pulse 69 07/08/23 11:16 Resp 16 07/08/23 11:16 BP 161/69 07/08/23 11:16 Pulse Ox 98 07/08/23 11:16 FiO2 Intake & Output 07/07/23 07/08/23 07/08/23 18:59 06:59 18:59 Intake Total 1105 228.08 480 Output Total 450 175 575 Balance 655 53.08 -95 Weight 78.1 kg 73.7 kg Intake: IV 985 360 Invasive Line 2 5 10 Sodium Chloride 0.9% 1, 980 350 000 ml In Empty Bag 1 bag @ 1 ML/KG/HR 70.307 mls/ hr IV .[id number] [facility] Rx#: [id number] Intake, IV Titration 228.08 Amount Heparin Sod,Pork in 0.45% 228.08 NaCl 25,000 unit In 0.45 % NaCl 1 250ml.bag @ 12 UNITS/KG/HR 8.437 mls/hr IV .Q24H [facility] Rx#: [id number] Oral 120 120 Output: Urine 450 175 575 Other: Voiding Method Urinal Urinal Urinal # Voids 1 1 - Labs CBC & Chem 7: 07/07/23 05:31 07/07/23 05:31 Labs: Abnormal Lab Results - Last 24 Hours (Table) 07/07/23 07/08/23 07/08/23 Range/Units 20:05 03:23 04:48 APTT 53.0 H (22.0-30.0) sec POC Glucose (mg/dL) 132 H (70-110) mg/dL Urine Protein (Negative) Urine Glucose (UA) 4+ H (Negative) Urine Ketones (Negative) Ur Leukocyte Esterase Large H (Negative) Urine WBC 178 H (0-5) /hpf Urine WBC Clumps Moderate H (None) /hpf Amorphous Sediment Few H (None) /hpf 07/08/23 Range/Units 11:24 APTT (22.0-30.0) sec POC Glucose (mg/dL) (70-110) mg/dL Urine Protein Trace H (Negative) Urine Glucose (UA) 4+ H (Negative) Urine Ketones Trace H (Negative) Ur Leukocyte Esterase Small H (Negative) Urine WBC 11 H (0-5) /hpf Urine WBC Clumps (None) /hpf Amorphous Sediment (None) /hpf Microbiology - Last 24 Hours (Table) 07/07/23 09:52 Nasal Screen MRSA/MSSA - Final Nasopharyngeal Swab
[2023-07-08 16:17] LABS: Glucose,Whole Blood 90 mg/dL (70-110)
[2023-07-08 20:15] LABS: Glucose,Whole Blood 131 mg/dL (70-110)
[2023-07-09] MEDS: hydrALAZINE HCL 25 MG TAB PO STA (04:27)
[2023-07-09 06:22] LABS: Glucose,Whole Blood 77 mg/dL (70-110)
--- NOTE | 2023-07-09 09:51 | P.PN ---
Subjective Progress Note Date: 07/09/23 Principal diagnosis: Acute inferior posterior myocardial infarction this admission, multivessel coronary artery disease. Past medical history significant for hypertension, hyperlipidemia, diabetes mellitus type 2, hypothyroid on Synthroid as an outpatient, remote history of nicotine dependence quit smoking 13 years ago and osteoarthritis. Patient was seen and examined in follow-up today 07/09/2023 at his bedside on the third floor cardiac stepdown. His daughter is present at his bedside. Patient is currently sitting up to bedside edge, is awake, alert, oriented 3 and is in no acute distress. He denies any complaints of chest pain/pressure, shortness of breath, shoulder or jaw pain. He states that since his angioplasty procedure he has had no further complaints of chest pain or pressure. A bedside FEV1 was completed just today which showed 43% of predicted value with a volume of 1.17 L. Pulmonary/critical care medicine has been consulted and a full pulmonary function test has been ordered. An STS risk score was calculated 2.79% which was discussed with the patient and his daughter. A clinical frailty score has also been calculated with the score equaling 4 which shows Fit/mild frailty. A 5 m walk test was completed with the patient yesterday and he tolerated well. Oxygen saturations are 97% on room air and he is achieving 1000 mL on his incentive spirometry with encouragement.Remote telemetry showing normal sinus rhythm heart rate 65 BPM. He is tentatively scheduled for myocardial revascularization surgery tomorrow 07/10/2023. The patient's daughter is requesting a second opinion in regards to myocardial revascularization surgery. Objective - Vital Signs Vital signs: Vital Signs Temp 98.1 F 07/09/23 08:00 Pulse 64 07/09/23 08:00 Resp 18 07/09/23 08:00 BP 140/73 07/09/23 08:00 Pulse Ox 98 07/09/23 08:00 FiO2 Intake & Output 07/08/23 07/09/23 07/09/23 18:59 06:59 18:59 Intake Total 598 10 245.095 Output Total 575 100 Balance 23 -90 245.095 Weight 72.7 kg Intake: IV 360 10 Invasive Line 2 10 10 Sodium Chloride 0.9% 1, 350 000 ml In Empty Bag 1 bag @ 1 ML/KG/HR 70.307 mls/ hr IV .[id number] [facility] Rx#: [id number] Intake, IV Titration 245.095 Amount Heparin Sod,Pork in 0.45% 245.095 NaCl 25,000 unit In 0.45 % NaCl 1 250ml.bag @ 12 UNITS/KG/HR 8.437 mls/hr IV .Q24H [facility] Rx#: [id number] Oral 238 Output: Urine 575 100 Other: Voiding Method Urinal Urinal Toilet Urinal # Voids 2 1 - Exam CONSTITUTIONAL: appears comfortable, cooperative, no apparent acute distress. HEENT: Neck is supple, no JVD, no lymphadenopathy. RESPIRATORY: Lungs sounds essentially clear throughouts. Respirations are symmetrical and nonlabored. Currently on room air with oxygen saturations 97%, and is achieving 1000 mL on his incentive spirometry with encouragement. Strong cough. CARDIOVASCULAR: Regular rhythm and bradycardic rate. S1 and S2 present, neg ative for S3, gallop or murmur. GASTROINTESTINAL: Abdomen soft, nontender, nondistended. Active bowel sounds present 4 quadrants. Tolerating diet. Passing flatus. No guarding or rigidity. GENITOURINARY: Continues to void. INTEGUMENTARY: Skin is warm and dry with no evidence of clubbing or cyanosis. NEUROLOGIC: Cranial nerves II through XII intact. No focal deficits. MUSKULOSKELETAL: Able to move all extremities, strength equal bilaterally. PSYCHIATRIC: Alert and oriented to person place and time, appropriate affect, intact judgment and insight. - Allied health notes Allied health notes reviewed: nursing - Labs CBC & Chem 7: 07/07/23 05:31 07/07/23 05:31 Labs: Abnormal Lab Results - Last 24 Hours (Table) 07/08/23 07/08/23 Range/Units 11:24 20:14 POC Glucose (mg/dL) 131 H (70-110) mg/dL Urine Protein Trace H (Negative) Urine Glucose (UA) 4+ H (Negative) Urine Ketones Trace H (Negative) Ur Leukocyte Esterase Small H (Negative) Urine WBC 11 H (0-5) /hpf Microbiology - Last 24 Hours (Table) 07/08/23 03:23 Urine Culture - Final Urine,Voided 07/07/23 09:52 Nasal Screen MRSA/MSSA - Final Nasopharyngeal Swab Assessment and Plan Assessment: Multivessel coronary artery disease, status post cardiac catheterization and angioplasty of his PDA coronary artery Acute inferior posterior myocardial infarction this admission, elevated troponin as high as 0.221 Hypertension Hyperlipidemia Diabetes mellitus type 2 Hypothyroid Osteoarthritis Remote history of nicotine dependence, quit smoking 13 years ago, A preoperative FEV1 43% of predicted value with a volume of 1.17 L Plan: The patient is tentatively scheduled for myocardial vascularization surgery on July 10, 2023 to be performed by Dr. Maloney with left internal mammary artery, possible endoscopic left radial artery harvest, endoscopic left vein harvest, exclusion left atrial appendage and intraoperative transesophageal echocardiogram. For pulmonary function test results remain pending. Pulmonary/critical care medicine consult noted and appreciated. Urinalysis is showing large leukocyte Estrace, urine WBC 178, urine culture pending continue to follow results. An STS risk Score has been calculated and discussed with the patient and the patient's daughter. A clinical frailty score was calculated at 4, which shows fit/mild frailty. A 5 m walk test was completed Yesterday 07/08/2023 with the patient, time 1: 4.45 seconds, Time 2: 4.93 seconds, Time 3: 4.23 seconds. Preoperative testing and preoperative teaching is in progress. Encourage use of incentive spirometry 10 times every hour while awake. Heparin drip management per cardiology recommendations. N.p.o. after midnight on July 10, 2023 in preparation for myocardial vascularization surgery. More recommendations to follow based on patient's clinical course. Time with Patient: Greater than 30
[2023-07-09 11:59] LABS: Glucose,Whole Blood 116 mg/dL (70-110)
--- NOTE | 2023-07-09 14:09 | P.PN ---
Subjective Progress Note Date: 07/09/23 Hospital Course: Patient is a 77-year-old male with diabetes mellitus type 2 treated with oral medications, hypertension, dyslipidemia, and hypothyroidism who presented to the ER due to chest pain and was found to have an ER inferior wall ST segment elevated myocardial infarction. Patient was taken to the [facility] by cardiology and found to have severe triple-vessel disease he did undergo successful and the plasty of the right PDA with reduction in stenosis to 40% but inability to completely clear the lesion. He was transferred to the ICU and cardiothoracic surgery was consulted. Plan is for possible cardiac bypass surgery on 07/10/2023. Subjective: Patient seen and examined at bedside. No acute events overnight. Denies any current chest pain. Pertinent positives and negatives as discussed above, a complete review of systems was performed and all other systems are negative. Vitals Signs Reviewed. General: Nontoxic, no distress, appears at stated age Derm: Warm, dry Head: Atraumatic, normocephalic, symmetric Eyes: EOMI, no lid lag, anicteric sclera Mouth: No lip lesion, mucus membranes moist Cardiovascular: S1S2 reg, no murmur Lungs: CTA bilateral, no rhonchi, no rales, no accessory muscle use Abdominal: Soft, nontender to palpation, no guarding, no appreciable org anomegaly Ext: No gross muscle atrophy, no edema, no contractures Neuro: CN II-XI grossly intact, no focal neuro deficits Psych: Alert, oriented, appropriate affect Data Reviewed Today: Pertinent Labs: Imaging: Assessment and Plan: Severe triple-vessel disease Acute ST segment elevated myocardial infarction status post blood angioplasty to the right PDA wiht reduction for 100% stenosis to 40% stenosis Hypertension Dyslipidemia -CT surgery note reviewed: Plan for surgery tomorrow -Neurology and cardiology following -Aspirin 81 mg daily, Lipitor 80 mg daily -Lopressor 25 mg twice daily -On heparin drip, PTT/PT being monitored, monitor for any bleeding -Nitro patch 1 inch every 8 hours Diabetes mellitus type 2 -Hold Glucotrol, Jardiance anticipate resuming jardaince post-op -Sliding scale insulin, monitor for hypoglycemia -Follow blood sugars closely given possibility of open heart surgery, patient will likely need to be on insulin drip. -A1c 7.2 Abnormal urinalysis -Patient asymptomatic, likely secondary to urinary retention Hypothyroidism -TSH 2.3 -Continue with levothyroxine 125 mcg daily Multiple sub-6 mm pulmonary nodules -Follow-up CT in 6 months DVT ppx: Heparin drip Code status: Full code Anticipated discharge place: Pending clinical course Anticipated discharge time: Pending clinical course Objective - Vital Signs Vital signs: Vital Signs Temp 98.1 F 07/09/23 08:00 Pulse 57 L 07/09/23 11:59 Resp 16 07/09/23 11:59 BP 142/65 07/09/23 11:59 Pulse Ox 98 07/09/23 11:59 FiO2 Intake & Output 07/08/23 07/09/23 07/09/23 18:59 06:59 18:59 Intake Total 731 40 1278.095 Output Total 575 100 250 Balance 23 -90 895.095 Weight 72.7 kg Intake: IV 360 10 Invasive Line 2 10 10 Sodium Chloride 0.9% 1, 350 000 ml In Empty Bag 1 bag @ 1 ML/KG/HR 70.307 mls/ hr IV .[id number] [facility] Rx#: [id number] Intake, IV Titration 245.095 Amount Heparin Sod,Pork in 0.45% 245.095 NaCl 25,000 unit In 0.45 % NaCl 1 250ml.bag @ 12 UNITS/KG/HR 8.437 mls/hr IV .Q24H [facility] Rx#: [id number] Oral 238 900 Output: Urine 575 100 250 Other: Voiding Method Urinal Urinal Toilet Urinal # Voids 2 1 1 - Labs CBC & Chem 7: 07/07/23 05:31 07/07/23 05:31 Labs: Abnormal Lab Results - Last 24 Hours (Table) 07/08/23 07/09/23 07/09/23 Range/Units 20:14 08:38 08:38 APTT 51.4 H (22.0-30.0) sec POC Glucose (mg/dL) 131 H (70-110) mg/dL Crossmatch See Detail 07/09/23 Range/Units 11:53 APTT (22.0-30.0) sec POC Glucose (mg/dL) 116 H (70-110) mg/dL Crossmatch Microbiology - Last 24 Hours (Table) 07/08/23 03:23 Urine Culture - Final Urine,Voided 06/01/24 09:52 Nasal Screen MRSA/MSSA - Final Nasopharyngeal Swab
--- NOTE | 2023-07-09 14:40 | P.PN ---
Subjective Progress Note Date: 07/09/23 Principal diagnosis: Acute coronary syndrome The patient is a 77-year-old gentleman who was admitted to the hospital with acute ST elevation myocardial infarction and underwent a heart catheterization and stenting of the PDA branch of the RCA and was found to have extremely calc ified right and left coronary system. With that being said surgical consult was placed for the evaluation of CABG. July 09, 2023 The patient was seen and evaluated this morning. Currently he is asymptomatic. He is hemodynamically stable. The echo showed mildly impaired LV function with EF between 40 to 45%. The patient currently is in process for the surgical evaluation. The physical examination is remarkable for stable vital signs with regular rate and rhythm and soft systolic murmur and clear breathing sounds bilaterally and no edema was noted Assessment Acute coronary syndrome Mildly impaired LV function Multiple comorbid conditions Plan Continue the current medical regimen Further evaluation by the surgical team Objective - Vital Signs Vital signs: Vital Signs Temp 98.1 F 07/09/23 08:00 Pulse 57 L 07/09/23 11:59 Resp 16 07/09/23 11:59 BP 142/65 07/09/23 11:59 Pulse Ox 98 07/09/23 11:59 FiO2 Intake & Output 07/08/23 07/09/23 07/09/23 18:59 06:59 18:59 Intake Total 079 05 5786.095 Output Total 575 100 250 Balance 23 -90 895.095 Weight 72.7 kg Intake: IV 360 10 Invasive Line 2 10 10 Sodium Chloride 0.9% 1, 350 000 ml In Empty Bag 1 bag @ 1 ML/KG/HR 70.307 mls/ hr IV .[id number] U[facility] Rx#: [id number] Intake, IV Titration 245.095 Amount Heparin Sod,Pork in 0.45% 245.095 NaCl 25,000 unit In 0.45 % NaCl 1 250ml.bag @ 12 UNITS/KG/HR 8.437 mls/hr IV .Q24H UZAIR Rx#: [id number] Oral 238 900 Output: Urine 575 100 250 Other: Voiding Method Urinal Urinal Toilet Urinal # Voids 2 1 1 - Labs CBC & Chem 7: 07/07/23 05:31 07/07/23 05:31 Labs: Abnormal Lab Results - Last 24 Hours (Table) 07/08/23 07/09/2324 Range/Units 20:14 08:38 08:38 APTT 51.4 H (22.0-30.0) sec POC Glucose (mg/dL) 131 H (70-110) mg/dL Crossmatch See Detail 07/09/23 Range/Units 11:53 APTT (22.0-30.0) sec POC Glucose (mg/dL) 116 H (70-110) mg/dL Crossmatch Microbiology - Last 24 Hours (Table) 07/08/23 03:23 Urine Culture - Final Urine,Voided 07/07/23 09:52 Nasal Screen MRSA/MSSA - Final Nasopharyngeal Swab
--- NOTE | 2023-07-09 14:49 | P.PN ---
Subjective Progress Note Date: 07/09/23 This is a pleasant 77-year-old male patient with a known history of diabetes mellitus type 2, hypothyroidism, hypertension, hyperlipidemia, former smoker who quit 13 years ago. He presented here to the emergency room on July 06, 2023 with complaints of chest pain radiating to his arms and jaw. He was found to have an acute myocardial infarction and was taken directly to the [facility] was found to have severe calcified coronary arteries, severe triple-vessel disease with acutely acute PDA and severe disease in the LAD and left circumflex. He did undergo angioplasty of the PDA. He was recommended coronary artery bypass surgery. Echocardiogram revealed impaired left ventricular systolic function w ith ejection fraction of 40 [address] 45%. [address] scan of the chest revealed no acute cardiopulmonary disease. There was some multiple sub-6 mm pulmonary nodules likely benign. His pulmonary function testing was consistent with restrictive lung disease however it appeared to be a inadequate test with decreased effort. His FEV1 value was 1.17 which is only 43% of predicted. He is seen today in consultation on the selective care unit. He is awake and alert in no acute distress. He denies any pulmonary symptoms. No shortness of breath, cough or congestion. He is not on any inhalers in the outpatient setting. He is able to do most day-to-day activities without significant shortness of breath. He has been educated regarding the use of the incentive spirometer. He is currently maintaining good O2 saturations in the 90s on room air. He has been afebrile. Hemodynamically stable. The patient is seen today July 09, 2023 in follow-up on the cardiac floor. He is currently resting comfortably in bed. Awake and alert in no acute distress. He denies any shortness of breath, cough or congestion. Denies any chest pain. He is maintaining good O2 saturations in the 90s on room air. He denies any chest pain. He is afebrile. Hemodynamically stable. He remains on a heparin drip. Glucose 116. He is working well with the incentive spirometer. Objective - Vital Signs Vital signs: Vital Signs Temp 98.1 F 07/09/23 08:00 Pulse 57 L 07/09/23 11:59 Resp 16 07/09/23 11:59 BP 142/65 07/09/23 11:59 Pulse Ox 98 07/09/23 11:59 FiO2 Intake & Output 07/08/23 07/09/23 07/09/23 18:59 06:59 18:59 Intake Total 472 99 2389.095 Output Total 575 100 250 Balance 23 -90 895.095 Weight 72.7 kg Intake: IV 360 10 Invasive Line 2 10 10 Sodium Chloride 0.9% 1, 350 000 ml In Empty Bag 1 bag @ 1 ML/KG/HR 70.307 mls/ hr IV .[id number] [facility] Rx#: [id number] Intake, IV Titration 245.095 Amount Heparin Sod,Pork in 0.45% 245.095 NaCl 25,000 unit In 0.45 % NaCl 1 250ml.bag @ 12 UNITS/KG/HR 8.437 mls/hr IV .Q24H [facility] Rx#: [id number] Oral 238 900 Output: Urine 575 100 250 Other: Voiding Method Urinal Urinal Toilet Urinal # Voids 2 1 1 - Exam GENERAL EXAM: Alert, pleasant 77-year-old gentleman, on room air, comfortable in no apparent distress. HEAD: Normocephalic. EYES: Normal reaction of pupils, equal size. NOSE: Clear with pink turbinates. THROAT: No erythema or exudates. NECK: No masses, no JVD. CHEST: No chest wall deformity. LUNGS: Equal air entry with no crackles, wheeze, rhonchi or dullness. CVS: S1 and S2 normal with no audible murmur, regular rhythm. ABDOMEN: No hepatosplenomegaly, normal bowel sounds, no guarding or rigidity. SPINE: No scoliosis or deformity SKIN: No rashes CENTRAL NERVOUS SYSTEM: No focal deficits, tone is normal in all 4 extremities. EXTREMITIES: There is no peripheral edema. No clubbing, no cyanosis. Peripheral pulses are intact. - Labs CBC & Chem 7: 07/07/23 05:31 07/07/23 05:31 Labs: Abnormal Lab Results - Last 24 Hours (Table) 07/08/23 07/09/23 07/09/23 Range/Units 20:14 08:38 08:38 APTT 51.4 H (22.0-30.0) sec POC Glucose (mg/dL) 131 H (70-110) mg/dL Crossmatch See Detail 07/09/23 Range/Units 11:53 APTT (22.0-30.0) sec POC Glucose (mg/dL) 116 H (70-110) mg/dL Crossmatch Microbiology - Last 24 Hours (Table) 07/08/23 03:23 Urine Culture - Final Urine,Voided 07/07/23 09:52 Nasal Screen MRSA/MSSA - Final Nasopharyngeal Swab Assessment and Plan Assessment: Acute inferior posterior myocardial infarction Multivessel coronary artery disease status post angioplasty of the PDA, plans for coronary revascularization on July 10, 2023 Remote history of smoking quit approximately 13 years ago not on inhalers in the outpatient setting Hypertension Hyperlipidemia Diabetes mellitus, type II Hypothyroidism Plan: The patient was seen and evaluated Labs and medications reviewed Stable and on room air Working well with the incentive spirometer Remains on a heparin drip Plan is for surgery tomorrow We will continue to follow I have personally seen and examined the patient, performed the documentation and the assessment and plan as written. Number of minutes spent on the visit: 10.
[2023-07-09 15:47] VITALS: BMI 24.3
[2023-07-09 16:03] LABS: Glucose,Whole Blood 122 mg/dL (70-110)
[2023-07-09 19:56] LABS: Glucose,Whole Blood 174 mg/dL (70-110)
[2023-07-10 06:06] LABS: Glucose,Whole Blood 108 mg/dL (70-110)
[2023-07-10 09:36] VITALS: TEMP 98.5
[2023-07-10 09:56] LABS: ABG HCO3 23 mmol/L (21-25); ABG Oxygen Saturation 95.6 % (94-97); ABG PCO2 34 mmHg (35-45); ABG PH 7.44 (7.35-7.45); ABG PO2 81 mmHg (83-108); ABG TCO2 24 mmol/L (19-24); Allen Test Performed? Yes
--- NOTE | 2023-07-10 11:15 | P.PN ---
Subjective Progress Note Date: 07/10/23 Principal diagnosis: Acute inferior posterior myocardial infarction this admission, multivessel coronary artery disease. Past medical history significant for hypertension, hyperlipidemia, diabetes mellitus type 2, hypothyroid on Synthroid as an outpatient, remote history of nicotine dependence quit smoking 13 years ago and osteoarthritis. The patient was seen and examined at his bedside on the third floor cardiac stepdown unit today July 10, 2023. Patient is currently sitting up to the bedside edge, is awake, alert, oriented x 3 and is in no acute apparent distress. He is tolerating his breakfast and denies any complaints of nausea. He also denies any further complaints of chest pain/pressure or shortness of breath. The patient states since he has had his angioplasty procedure he has had no further complaints of chest pain/pressure. The patient was tentatively scheduled for myocardial vascularization surgery today, although after further discussions between the cardiology group, pulmonary/critical care medicine and cardiothoracic surgery it was decided that the patient should be optimized medically prior to surgery. The patient FEV1 was 43% of predicted value with a volume of 1.17 L. The patient is scheduled for a pulmonary function test as an outpatient and will follow-up with Dr. Monteiro from pulmonary critical care medicine on Sunday, July 16, 2023 at 10 AM. This was all discussed with the patient, his daughter daughter and other family members present at his bedside who all agree with the plan. Objective - Vital Signs Vital signs: Vital Signs Temp 98.5 F 07/10/23 08:00 Pulse 60 07/10/23 08:00 Resp 18 07/10/23 08:00 BP 141/64 07/10/23 08:00 Pulse Ox 94 L 07/10/23 08:51 FiO2 Intake & Output 07/09/23 07/10/23 07/10/23 18:59 06:59 18:59 Intake Total 1865.095 Output Total 250 Balance 1615.095 Weight 72.7 kg Intake: Intake, IV Titration 245.095 Amount Heparin Sod,Pork in 0.45% 245.095 NaCl 25,000 unit In 0.45 % NaCl 1 250ml.bag @ 12 UNITS/KG/HR 8.437 mls/hr IV .Q24H [facility] Rx#: [id number] Oral 1620 Output: Urine 250 Other: Voiding Method Toilet Toilet Toilet Urinal Urinal Urinal # Voids 1 2 - Exam CONSTITUTIONAL: appears comfortable, cooperative, no apparent acute distress. HEENT: Neck is supple, no JVD, no lymphadenopathy. RESPIRATORY: Lungs sounds essentially clear throughouts. Respirations are symmetrical and nonlabored. Currently on room air with oxygen saturations 95%, and is achieving 1000 mL on his incentive spirometry with encouragement. Strong cough. CARDIOVASCULAR: Regular rhythm and bradycardic rate. S1 and S2 present, negative for S3, gallop or murmur. GASTROINTESTINAL: Abdomen soft, nontender, nondistended. Active bowel sounds present 4 quadrants. Tolerating diet. Passing flatus. No guarding or rigidity. GENITOURINARY: Continues to void. INTEGUMENTARY: Skin is warm and dry with no evidence of clubbing or cyanosis. NEUROLOGIC: Cranial nerves II through XII intact. No focal deficits. MUSKULOSKELETAL: Able to move all extremities, strength equal bilaterally. PSYCHIATRIC: Alert and oriented to person place and time, appropriate affect, intact judgment and insight. - Allied health notes Allied health notes reviewed: nursing - Labs CBC & Chem 7: 07/07/23 05:31 07/07/23 05:31 Labs: Abnormal Lab Results - Last 24 Hours (Table) 07/09/23 07/09/23 07/09/23 Range/Units 08:38 11:53 16:01 ABG pCO2 (35-45) mmHg ABG pO2 (83-108) mmHg POC Glucose (mg/dL) 116 H 122 H (70-110) mg/dL Crossmatch See Detail 07/09/23 07/10/23 Range/Units 19:55 09:52 ABG pCO2 34 L (35-45) mmHg ABG pO2 81 L (83-108) mmHg POC Glucose (mg/dL) 174 H (70-110) mg/dL Crossmatch Microbiology - Last 24 Hours (Table) 07/08/23 03:23 Urine Culture - Final Urine,Voided Assessment and Plan Assessment: Multivessel coronary artery disease, status post cardiac catheterization and angioplasty of his PDA coronary artery Acute inferior posterior myocardial infarction this admission, elevated troponin as high as 0.221 Hypertension Hyperlipidemia Diabetes mellitus type 2 Hypothyroid Osteoarthritis Remote history of nicotine dependence, quit smoking 13 years ago, A preoperative FEV1 43% of predicted value with a volume of 1.17 L History of agent orange exposure during the [place] War Plan: Patient is scheduled to follow-up with Dr. Monteiro on July 15 at 10 AM for full pulmonary function test and a 6-minute walk test. The patient will be scheduled for a follow-up appointment with Dr. Augusto Vences as an outpatient once he has been cleared from pulmonary medicine to proceed with myocardial revascularization surgery. An STS risk Score has been calculated and discussed with the patient and the patient's daughter. A clinical frailty score was calculated at 4, which shows fit/mild frailty. A 5 m walk test was completed Yesterday 07/08/2023 with the patient, time 1: 4.45 seconds, Time 2: 4.93 seconds, Time 3: 4.23 seconds. Encourage use of incentive spirometry 10 times every hour while awake. Heparin drip management per cardiology recommendations. More recommendations to follow based on patient's clinical course. Time with Patient: Greater than 30
[2023-07-10 11:42] LABS: Glucose,Whole Blood 103 mg/dL (70-110)
[2023-07-10 11:46] VITALS: BP 144/65; PULSE 55; RESP 17
--- NOTE | 2023-07-10 12:15 | P.PN ---
Subjective Progress Note Date: 07/10/23 Principal diagnosis: Coronary artery disease. This is a pleasant 77-year-old male patient with a known history of diabetes mellitus type 2, hypothyroidism, hypertension, hyperlipidemia, former smoker who quit 13 years ago. He presented here to the emergency room on July 06, 2023 with complaints of chest pain radiating to his arms and jaw. He was found to have an acute myocardial infarction and was taken directly to the [facility] was found to have severe calcified coronary arteries, severe triple-vessel disease with acutely acute PDA and severe disease in the LAD and left circumflex. He did undergo angioplasty of the PDA. He was recommended coronary artery bypass surgery. Echocardiogram revealed impaired left ventricular systolic function with ejection fraction of 40 [address] 45%. CT scan of the chest revealed no acute cardiopulmonary disease. There was some multiple sub-6 mm pulmonary nodules likely benign. His pulmonary function testing was consistent with restrictive lung disease however it appeared to be a inadequate test with decreased effort. His FEV1 value was 1.17 which is only 43% of predicted. He is seen today in consultation on the selective care unit. He is awake and alert in no acute distress. He denies any pulmonary symptoms. No shortness of breath, cough or congestion. He is not on any inhalers in the outpatient setting. He is able to do most day-to-day activities without significant shortness of breath. He has been educated regarding the use of the incentive spirometer. He is currently maintaining good O2 saturations in the 90s on room air. He has been afebrile. Hemodynamically stable. The patient is seen today July 09, 2023 in follow-up on the cardiac floor. He is currently resting comfortably in bed. Awake and alert in no acute distress. He denies any shortness of breath, cough or congestion. Denies any chest pain. He is maintaining good O2 saturations in the 90s on room air. He denies any chest pain. He is afebrile. Hemodynamically stable. He remains on a heparin drip. Glucose 116. He is working well with the incentive spirometer. Progress note dated July 10, 2023. The patient is seen today in room 383. He is currently on room air. He is getting saline at 20 cc an hour. I asked for room air arterial blood gas. The pO2 is 81, pCO2 34, and pH is 7.44. Based on his age, his baseline PA O2 should be 72 mmHg. The patient is not going to have surgery, but rather see us in the outpatient setting, for optimization of his COPD. He had a bedside spirometry, which showed an FEV1 value of 1.17, which is 43% of predicted. The patient will have a full PFT in my office, and a 6-minute walk distance. I will let Dr. Vences know when it is safe for him to have surgery. I spoke to Dr. Vences about this patient yesterday. Laboratory data includes only the blood gas, and a glucose of 103. Objective - Vital Signs Vital signs: Vital Signs Temp 98.5 F 07/10/23 08:00 Pulse 55 L 07/10/23 11:45 Resp 17 07/10/23 11:45 BP 144/65 07/10/23 11:45 Pulse Ox 99 07/10/23 11:45 FiO2 Intake & Output 07/09/23 07/10/23 07/10/23 18:59 06:59 18:59 Intake Total 1865.095 765.409 Output Total 250 Balance 1615.095 765.409 Weight 72.7 kg Intake: Intake, IV Titration 245.095 225.409 Amount Heparin Sod,Pork in 0.45% 245.095 225.409 NaCl 25,000 unit In 0.45 % NaCl 1 250ml.bag @ 12 UNITS/KG/HR 8.437 mls/hr IV .Q24H [facility] Rx#: [id number] Oral 1620 540 Output: Urine 250 Other: Voiding Method Toilet Toilet Toilet Urinal Urinal Urinal # Voids 1 2 2 - Exam No acute distress, oriented 3. Room air saturation is 99%. HEENT examination is grossly unremarkable. Mucous membranes are moist. No oral lesions. Neck supple. Full range of motion. No adenopathy thyromegaly or neck vein distention. Cardiovascular examination reveals regular rhythm rate. S1-S2 normal. No S3 or S4. No discernible murmur noted. Heart rate 55 bpm. Lungs reveal mild scattered rhonchi. No wheezes or crackles. Breath sounds equal bilaterally. Room air saturation 99%. Abdomen soft bowel sounds are heard. No masses or tenderness. Extremities are intact. No cyanosis clubbing or edema. Skin is without rash or lesion. Neurologic examination is brief but nonfocal. - Labs CBC & Chem 7: 07/07/23 05:31 07/07/23 05:31 Labs: Abnormal Lab Results - Last 24 Hours (Table) 07/09/23 07/09/23 07/10/23 Range/Units 16:01 19:55 09:52 ABG pCO2 34 L (35-45) mmHg ABG pO2 81 L (83-108) mmHg POC Glucose (mg/dL) 122 H 174 H (70-110) mg/dL Microbiology - Last 24 Hours (Table) 07/08/23 03:23 Urine Culture - Final Urine,Voided Assessment and Plan Assessment: Acute inferior posterior myocardial infarction. Multivessel coronary artery disease, status post angioplasty of the PDA, with plans for CABG, in the near future. Remote history of tobacco use, with evidence of COPD. Hypertension. Hyperlipidemia. Diabetes mellitus, type II. Hypothyroidism. Plan: Plan dated July 10, 2023. The patient will be discharged from the hospital. Will see him in the office, next week, likely on Sunday or Sunday in the morning. The patient will need a complete pulmonary function test, and 6-minute walk distance. His room air resting blood gases are excellent, with a pO2 of 81, pCO2 34, pH is 7.44. His expected PaO2 given his age should be 72 mmHg. The patient continues on room air. The patient is setting saline at 20 cc an hour. I did speak to Dr. Vences about this patient. Time with Patient: Less than 30
[2023-07-10 13:21] LABS: Basophils % (A) 1 %; Eosinophils # (A) 0.1 k/uL (0-0.7); Eosinophils % (A) 1 %; HCT 42.6 % (39.0-53.0); HGB 13.7 gm/dL (13.0-17.5); Lymphocytes # (A) 1.5 k/uL (1.0-4.8); Lymphocytes % (A) 20 %; MCH 29.9 pg (25.0-35.0); MCHC 32.2 g/dL (31.0-37.0); Mean Platelet Volume 7.5; Monocytes # (A) 0.6 k/uL (0-1.0); Monocytes % (A) 8 %; Neutrophils # (A) 5.1 k/uL (1.3-7.7); Neutrophils % (A) 68 %; Platelet Count 215 k/uL (150-450); RBC 4.58 m/uL (4.30-5.90); RDW 13.6 % (11.5-15.5); WBC 7.5 k/uL (3.8-10.6)
--- NOTE | 2023-07-10 13:27 | P.DS ---
Providers Date of admission: 07/06/23 20:28 Expected date of discharge: 07/10/23 Attending physician: Nena Huff MD Consults: 07/06/23 20:25 Consult Physician Stat Consulting Provider: Jeffry Castro Consult Reason/Comments: stemi Do you want consulting provider notified?: Already Contacted 07/06/23 22:15 Consult Physician Routine Consulting Provider: [facility] Consult Reason/Comments: Post Interventional Patient Do you want consulting provider notified?: Already Contacted 07/06/23 22:19 Consult Physician Routine Consulting Provider: Augusto Vences Consult Reason/Comments: cabg Do you want consulting provider notified?: Yes, Notify in am 07/08/23 11:24 Consult Physician Routine Consulting Provider: Beryl Narvaez Consult Reason/Comments: preop CABG FEV1 34% Do you want consulting provider notified?: Yes 07/09/23 08:00 Consult to Anesthesia Routine Consulting Provider: Anesthesia,Services Consult Reason/Comments: Cardiac Surgery Pre-Op Primary care physician: [facility] Hospital Course: Discharge Diagnosis: Severe triple-vessel disease Acute ST segment elevated myocardial infarction status post blood angioplasty to the right PDA wiht reduction for 100% stenosis to 40% stenosis Hypertension Dyslipidemia Diabetes mellitus type 2 Hypothyroidism Multiple sub-6 mm pulmonary nodules Hospital Course: Patient is a 77-year-old male with diabetes mellitus type 2 treated with oral medications, hypertension, dyslipidemia, and hypothyroidism who presented to the ER due to chest pain and was found to have an ER inferior wall ST segment elevated myocardial infarction. Patient was taken to the [facility] by cardiology and found to have severe triple-vessel disease he did undergo successful and the plasty of the right PDA with reduction in stenosis to 40% but inability to completely clear the lesion. He was transferred to the ICU and cardiothoracic surgery was consulted. Patient started on heparin drip. Plan was initially to do CABG inpatient. Echocardiogram showed LVEF 40 to 45% with inferior and septal wall hypokinesis. Pulmonology was consulted for pulmonary clearance. Chest CT showed multiple sub-6 mm pulmonary nodules, likely benign, needs 6- month follow-up, nonobstructing renal calcifications. He was eventually determined that patient will need further optimization outpatient before undergoing surgical intervention. He will follow-up outpatient with pulmonology and will be considered for CABG in a few weeks. Will be discharged on aspirin and statin. Patient seen and examined at bedside. Vital signs reviewed and stable. General: Nontoxic, no distress, appears at stated age Derm: Warm, dry Head: Atraumatic, normocephalic, symmetric Eyes: EOMI, no lid lag, anicteric sclera Mouth: No lip lesion, mucus membranes moist Cardiovascular: S1S2 reg, no murmur Lungs: CTA bilateral, no rhonchi, no rales, no accessory muscle use Abdominal: Soft, nontender to palpation, no guarding, no appreciable organomegaly Ext: No gross muscle atrophy, no edema, no contractures Neuro: CN II-XI grossly intact, no focal neuro deficits Psych: Alert, oriented, appropriate affect A total of 33 minutes of time were spent preparing this complex discharge summary. Patient was discharged on 07/10/2023 at 1321. Patient Condition at Discharge: Stable Plan - Discharge Summary New Discharge Prescriptions: New Nitroglycerin Sl Tabs [Nitrostat] 0.4 mg SUBLINGUAL Q5M PRN #30 tab PRN Reason: Chest Pain Aspirin 81 mg PO DAILY #90 tab Atorvastatin [Lipitor] 80 mg PO HS #90 tab Metoprolol Tartrate [Lopressor] 25 mg PO BID #120 tab Continue Levothyroxine Sodium [Synthroid] 125 mcg PO DAILY glipiZIDE [Glucotrol] 10 mg PO BID Empagliflozin [Jardiance] 25 mg PO DAILY@1200 Discontinued Losartan Potassium 50 mg PO DAILY Atorvastatin [Lipitor] 40 mg PO DAILY Discharge Medication List Levothyroxine Sodium [Synthroid] 125 mcg PO DAILY 07/06/23 [History] Empagliflozin [Jardiance] 25 mg PO DAILY@1200 07/07/23 [History] glipiZIDE [Glucotrol] 10 mg PO BID 07/07/23 [History] Aspirin 81 mg PO DAILY #90 tab 07/10/23 [Rx] Atorvastatin [Lipitor] 80 mg PO HS #90 tab 07/10/23 [Rx] Metoprolol Tartrate [Lopressor] 25 mg PO BID #120 tab 07/10/23 [Rx] Nitroglycerin Sl Tabs [Nitrostat] 0.4 mg SUBLINGUAL Q5M PRN #30 tab 07/10/23 [Rx] Follow up Appointment(s)/Referral(s): Deandre Francisco MD [STAFF PHYSICIAN] - 1 Week Ru,Augusto R, MD [STAFF PHYSICIAN] - 4 Weeks (Follow-up in [address] Augusto Vences from cardiothoracic surgery once cleared by Dr. Monteiro for myocardial vascularization surgery.) Meliton Monteiro DO [Doctor of Osteopathic Medicine] - 07/16/23 10:00 am (Will be seen by Dr. Monteiro and will undergo a full pulmonary function test and 6-minute walk test) [facility],Clinic [Primary Care Provider] - 1-2 days Patient Instructions/Handouts: Heart Attack (DC) Activity/Diet/Wound Care/Special Instructions: Please see pulmonology, cardiothoracic surgery and cardiology. Discharge Disposition: HOME SELF-CARE
[2023-07-10 13:33] LABS: African American GFR (CKD) 90 (>60 ml/min/1.73 sqM); Anion Gap 5 mmol/L; Blood Urea Nitrogen 19 mg/dL (9-20); Calcium 8.7 mg/dL (8.4-10.2); Carbon Dioxide 24 mmol/L (22-30); Chloride 107 mmol/L (98-107); Glucose 110 mg/dL (74-99); Magnesium 2.1 mg/dL (1.6-2.3); Non-African American GFR(CKD) 78 (>60 ml/min/1.73 sqM); Potassium 3.9 mmol/L (3.5-5.1); Sodium 136 mmol/L (137-145)
[2023-07-10 15:07] LABS: ABG Base Excess -0.6 mmol/L
--- NOTE | 2023-07-10 15:27 | P.PN ---
Subjective Progress Note Date: 07/10/23 Acute coronary syndrome The patient is a 77-year-old gentleman who was admitted to the hospital with acute ST elevation myocardial infarction and underwent a heart catheterization and stenting of the PDA branch of the RCA and was found to have extremely calcified right and left coronary system. With that being said surgical consult was placed for the evaluation of CABG. July 09, 2023 The patient was seen and evaluated this morning. Currently he is asymptomatic. He is hemodynamically stable. The echo showed mildly impaired LV function with EF between 40 to 45%. The patient currently is in process for the surgical evaluation. The physical examination is remarkable for stable vital signs with regular rate and rhythm and soft systolic murmur and clear breathing sounds bilaterally and no edema was noted 07/09 Patient is scheduled for discharge home today with plan to return next week for CABG. Patient denies having any chest pain at this time. No shortness of breath. He is anxious to go home today. We will add Plavix to his medication regime for home. Blood pressure 144/65, heart rate 55, pulse ox 99% on room air. Repeat blood work reveals hemoglobin 13.7, potassium 3.9, creatinine 0.94. Assessment Acute coronary syndrome Mildly impaired LV function Multiple comorbid conditions Plan Continue the current medical regimen And Plavix 75 mg daily to his regime Patient is cleared by cardiology for discharge home Nurse practitioner note has been reviewed, I agree with documented findings and plan of care. Patient was seen and examined. Objective - Vital Signs Vital signs: Vital Signs Temp 98.5 F 07/10/23 08:00 Pulse 55 L 07/10/23 11:45 Resp 17 07/10/23 11:45 BP 144/65 07/10/23 11:45 Pulse Ox 99 07/10/23 11:45 FiO2 Intake & Output 07/09/23 07/10/23 07/10/23 18:59 06:59 18:59 Intake Total 1865.095 765.409 Output Total 250 Balance 1615.095 765.409 Weight 72.7 kg Intake: Intake, IV Titration 245.095 225.409 Amount Heparin Sod,Pork in 0.45% 245.095 225.409 NaCl 25,000 unit In 0.45 % NaCl 1 250ml.bag @ 12 UNITS/KG/HR 8.437 mls/hr IV .Q24H [facility] Rx#: [id number] Oral 1620 540 Output: Urine 250 Other: Voiding Method Toilet Toilet Toilet Urinal Urinal Urinal # Voids 1 2 2 - Labs CBC & Chem 7: 07/10/23 12:54 07/10/23 12:54 Labs: Abnormal Lab Results - Last 24 Hours (Table) 07/09/23 07/09/23 07/10/23 Range/Units 16:01 19:55 09:52 ABG pCO2 34 L (35-45) mmHg ABG pO2 81 L (83-108) mmHg POC Glucose (mg/dL) 122 H 174 H (70-110) mg/dL Microbiology - Last 24 Hours (Table) 07/08/23 03:23 Urine Culture - Final Urine,Voided
== END 2023-07-10 15:05 | disposition home or self-care, planned readmission (81) | DRG 251 ==
LOC: EC 19:45 → 2SICU 20:28 → 3SCARD 07-07 18:49 → 2SICU 07-10 07:37 → 3SCARD 07-10 08:32
PROVIDERS: ADMIT Internal Medicine; ATTEND Internal Medicine
PROC: 4A023N7 Measurement of Cardiac Sampling and Pressure, Left Heart, Percutaneous Approach (ICD-10-PCS; principal; 2023-07-06 20:42)
PROC: B2111ZZ Fluoroscopy of Multiple Coronary Arteries using Low Osmolar Contrast (ICD-10-PCS; principal; 2023-07-06 20:42)
PROC: 02703ZZ Dilation of Coronary Artery, One Artery, Percutaneous Approach (ICD-10-PCS; principal; 2023-07-06 20:42)
DX: I21.11 ST elevation (STEMI) myocardial infarction involving right coronary artery (principal); I10 Essential (primary) hypertension; E78.5 Hyperlipidemia, unspecified; E11.9 Type 2 diabetes mellitus without complications; E03.9 Hypothyroidism, unspecified; R91.8 Other nonspecific abnormal finding of lung field; M19.90 Unspecified osteoarthritis, unspecified site; R33.9 Retention of urine, unspecified; R00.1 Bradycardia, unspecified; I25.84 Coronary atherosclerosis due to calcified coronary lesion; J44.9 Chronic obstructive pulmonary disease, unspecified; E11.69 Type 2 diabetes mellitus with other specified complication; I44.0 Atrioventricular block, first degree; I25.10 Atherosclerotic heart disease of native coronary artery without angina pectoris; Z77.098 Contact with and (suspected) exposure to other hazardous, chiefly nonmedicinal, chemicals; Z87.891 Personal history of nicotine dependence; Z79.890 Hormone replacement therapy; Z79.899 Other long term (current) drug therapy; Z79.84 Long term (current) use of oral hypoglycemic drugs; Z79.82 Long term (current) use of aspirin
CPT/HCPCS: 36415; 36600; 71045; 71250; 80048; 80053; 80061; 80074; 81001; 82805; 83036; 83735; 84443; 84484; 85025; 85610; 85730; 86850; 86900; 86901; 86920; 87070; 87086; 92920; 93005; 93306; 93458; 93880; 93923; 93970; 94150; 94760; 96374; 99285